=== PATIENT | male | born 1950 | race Caucasian/White ===

== ENCOUNTER 2020-12-27 17:42 | Outpatient (CLI) | payer MEDICARE, SELFPAY | END 2020-12-27 17:43 | disposition home or self-care (01) | LOC: ANHCOVIDVC 17:42 | PROVIDERS: PCP Family Medicine; Visit Provider Family Medicine | DX: Z23 Encounter for immunization (principal) | CPT/HCPCS: 0001A; 91300 ==

== ENCOUNTER 2021-01-17 16:35 | Outpatient (CLI) | payer MEDICARE, SELFPAY | END 2021-01-17 16:36 | disposition home or self-care (01) | LOC: ANHCOVIDVC 16:35 | PROVIDERS: PCP Family Medicine | DX: Z23 Encounter for immunization (principal) | CPT/HCPCS: 0002A; 91300 ==

== ENCOUNTER 2022-06-12 01:49 | Day surgery (SDC) | payer MEDICARE, SELFPAY ==
[2022-05-30 12:23] VITALS: BMI 25.7
[2022-06-12 10:22] VITALS: BP 141/100; PULSE 91; TEMP 36.4; O2SAT 99
[2022-06-12] MEDS: LACTATED RINGERS 1,000 ML 150 ML IV CONT (10:23)
--- NOTE | 2022-06-12 10:30 | PM.IMHP ---
H&P: HPI History of Present Illness Date/Time: 06/12/22 10:30 Chief Complaint: Neoplasia screening. Narrative: This is a 71-year-old white male patient presents for screening colonoscopy. Patient reports his current weight appetite and bowel movements are normal. He denies abdominal pain. He has had no bleeding. Family history is significant both his mother and maternal aunt have had colon cancer. Patient presents today for screening colonoscopy. Last exam 2014 was unremarkable. Review of Systems Review of Systems: Review of systems noncontributory. FORMERLY [facility] Family History Family History (Updated 12/31/17 @ 12:14 by DOCTOR UNKNOWN) Father Family history of cardiovascular disease Sibling Diabetes mellitus Mother Carcinoma of colon Social History Social History Smoking status: Light tobacco smoker Alcohol intake: current Substance use type: does not use Living arrangements: with family Spiritual care concerns: No Meds Home Medications and Allergies Home Medications Medication Instructions Recorded Confirmed Type No Home Medications 06/12/22 06/12/22 History Allergies Allergy/AdvReac Type Severity Reaction Status Date / Time PCN Allergy Unknown Unknown Uncoded 06/12/22 10:21 Vital Signs Vital Signs - 24 hr 06/12/22 10:22 Temperature 97.6 F Pulse Rate 91 Blood Pressure 141/100 H Pulse Oximetry 99 Oxygen Delivery Room Air Exam Narrative: Physical exam reveals patient to be alert. Vital signs stable. HEENT exam is unremarkable. Patient is anicteric. Lungs are clear to auscultation and percussion. Heart is without murmur or extra sounds. Abdominal exam bowel sounds are present soft nontender with no organomegaly. Digital external rectal exam is normal. Assessment and Plan Assessment and plan (1) Encounter for screening colonoscopy: Code(s): Z12.11 - Encounter for screening for malignant neoplasm of colon Status: Acute Assessment and Plan: Patient presents for screening colonoscopy. Family history of colon cancer suggesting may have a higher risk of colon polyps. Follow-up colonoscopy at 5 year intervals advised.
--- NOTE | 2022-06-12 10:40 | P.PNAN_ITS ---
Anes - Initial Pre Proc Eval Procedure: Operation Date: 06/12/22 11:30 Proposed Procedures p Screening Colonoscopy - Dimas Bennett MD Date/Time: 06/12/22 10:40 Surgeon: Dimas Bennett MD Pre Op Diagnosis: family hx of colon ca Patient Data Age: 71 Gender: M Height: 1.83 m Weight: 89.2 kg Last Vital Signs Temp 97.6 F 06/12/22 10:22 Pulse 91 06/12/22 10:22 BP 141/100 H 06/12/22 10:22 Pulse Ox 99 06/12/22 10:22 O2 Del Method Room Air 06/12/22 10:22 Allergies Allergy/AdvReac Type Severity Reaction Status Date / Time PCN Allergy Unknown Unknown Uncoded 06/12/22 10:21 Home Medications Medication Instructions Recorded Confirmed Type No Home Medications 06/12/22 06/12/22 History Patient hx anesthesia problems: none Family hx anesthesia problems: none Results Review: All pre-operative results and documents have been reviewed as part of the pre- operative evaluation. [facility] Family History Family History (Updated 12/31/17 @ 12:14 by DOCTOR UNKNOWN) Father Family history of cardiovascular disease Sibling Diabetes mellitus Mother Carcinoma of colon Social History Social History Smoking status: Light tobacco smoker Alcohol intake: current Substance use type: does not use Living arrangements: with family Spiritual care concerns: No Anes - Eval Final PreProcedure Day of Procedure 06/12/22 10:40 Patient weight: normal Heart: regular rate and rhythm Lungs: clear to auscultation Airway: Mallampati scale class II Neurological: alert and oriented Last oral intake: >/= 8 hours ASA classification: II Emergent: no Anesthetic plan: proceed Anesthesia type and monitoring: general GIVS and standard monitoring Results Review: All pre-operative results and documents have been reviewed as part of the pre- operative evaluation. Informed Consent: The patient's anesthetic plan and its attendant risks and benefits were discussed with the patient/family/POA. Questions were solicited and answers provided to the satisfaction of the patient/family/POA.
[2022-06-12 10:54] VITALS: BP 100/72; PULSE 80; RESP 14; O2SAT 99
[2022-06-12 11:04] VITALS: BP 112/75; PULSE 74; RESP 16; O2SAT 95
[2022-06-12 11:14] VITALS: BP 111/74; PULSE 68; RESP 15; O2SAT 96
[2022-06-12 11:24] VITALS: BP 109/90; PULSE 73; RESP 15; O2SAT 97
== END 2022-06-12 11:33 | disposition home or self-care (01) ==
PROVIDERS: PCP Family Medicine; Visit Provider Internal Medicine Gastroenterology
PROC: 0DJD8ZZ Inspection of Lower Intestinal Tract, Via Natural or Artificial Opening Endoscopic (ICD-10-PCS; CPT 45378; principal; 2022-06-12 11:30)
DX: Z12.11 Encounter for screening for malignant neoplasm of colon (principal); Z80.0 Family history of malignant neoplasm of digestive organs
CPT/HCPCS: G0105; J2704; J7120

== ENCOUNTER 2022-09-14 07:38 | Outpatient (CLI) | payer MEDICARE, SELFPAY ==
--- NOTE | ~2022-09-14 | NM_ITS ---
EXAMINATION: NM bone scan whole body DATE: 09/14/2022 12:26 INDICATION: Prostate cancer. TECHNIQUE: 26.4 mCi Tc-99m HDP was administered intravenously. Delayed whole-body scintigrams were o btained. COMPARISON: CT abdomen and pelvis 09/14/2022 FINDINGS: There is joint-centered increased activity in the spine, sternoclavicular joints, acromiocl avicular joints, right glenohumeral joint, hands, and wrists, likely osteoarthritis. IMPRESSION: 1. No specific evidence of metastatic disease. Reviewed, dictated and finalized at location A. LER DRAGLINE OPERATOR
--- NOTE | ~2022-09-14 | CT_ITS ---
EXAMINATION: CT abdomen pelvis w con INDICATION: Low back pain, history of prostate cancer TECHNIQUE: Computed tomographic images of the abdomen and pelvis were obtained after the administrati on of 100 cc of Omnipaque 350 intravenous contrast. The dose-length product (DLP) was 658.32 mGy-cm. Automated exposure control and iterative reconstruction technique were employed. COMPARISON: None available FINDINGS: Minimal dependent atelectasis is present in the lung bases. The heart size is normal. The l iver, spleen, pancreas, gallbladder, and adrenal glands are normal. The right kidney is unremarkable. There is a 1.4 cm soft tissue attenuation lesion projecting from the posterior aspect of the left ki dney. No pathologically enlarged abdominal or pelvic lymph nodes are identified. There is no free int raperitoneal gas or evidence of bowel obstruction. There is mild circumferential wall thickening of t he urinary bladder. There is severe lower lumbar spondylosis. IMPRESSION: 1. No evidence of metastatic disease. 2. Indeterminate lesion of the left kidney. Follow-up by CT or MRI without and with contrast is recom mended. 3. Severe lower lumbar spondylosis. 4. Circumferential wall thickening of the urinary bladder which could reflect cystitis or chronic out let obstruction. Reviewed, dictated and finalized at location F. RAL HOME ATTENDANT IMPRESSION: 1. No evidence of metastatic disease. 2. Indeterminate lesion of the left kidney. Follow-up by CT or MRI without and with contrast is recommended. 3. Severe lower lumbar spondylosis. 4. Circumferential wall thickening of the urinary bladder which could reflect c ystitis or chronic outlet obstruction.
[2022-09-14 08:17] LABS: Estimated Glomerular Filt Rate > 60
== END 2022-09-14 07:39 | disposition home or self-care (01) ==
PROVIDERS: PCP Family Medicine; Visit Provider Urology
DX: C61 Malignant neoplasm of prostate (principal); M47.896 Other spondylosis, lumbar region
CPT/HCPCS: 74177; 78306; A9561; Q9967

== ENCOUNTER 2022-10-15 06:34 | Outpatient (CLI) | payer MEDICARE, SELFPAY ==
--- NOTE | ~2022-10-15 | MR_ITS ---
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 Sequences included coronal T2-weighted SS-FSE, coronal and axial FS 2D-F IESTA, axial STIR FSE, axial T2-weighted SS-FSE, axial T2-weighted FS SS-FSE, axial diffusion-weighte d SE, axial dual-echo T1-weighted FSPGR, and axial and coronal T1-weighted LAVA. Postcontrast axial T 1-weighted LAVA images were obtained in a time course. Postcontrast coronal T1-weighted LAVA images w ere obtained. COMPARISON: CT dated 09/14/2022 FINDINGS: Heart size is normal. No pericardial effusion. Trace right pleural effusion. Mild diffuse hepatic leigh ann atosis. Gallbladder, pancreas, spleen right kidney and bilateral adrenal glands are normal. Nonenhanc ing 1.5 cm exophytic complex cyst at the lower pole of the left kidney corresponding to the lesion of concern on prior CT. This demonstrates high T2 signal with small amount of dependently layering low T2, high T1 either blood or proteinaceous fluid. Visualized portions of the bowels are unremarkable. Mild bladder wall thickening with trabeculated mucosal surface which could be related to chronic outl et obstruction from the prostate which appeared enlarged on the prior CT . No pathologically enlarged abdominal or pelvic lymphadenopathy. Moderate thoracic and severe lower lumbar spondylosis. IMPRESSION: 1. Left renal lesion of concern corresponds to a 1.5 cm exophytic complex proteinaceous/hemorrhagic c yst at the lower pole of the left kidney. 2. Bladder wall thickening with trabeculation likely related to chronic outlet obstruction related to prostatomegaly. Reviewed, dictated and finalized at location B. CHMENT ASSISTANT IMPRESSION: 1. Left renal lesion of concern corresponds to a 1.5 cm exophytic complex prote inaceous/hemorrhagic cyst at the lower pole of the left kidney. 2. Bladder wall thickening with trabeculation likely related to chronic outlet obstruction related to prostatomegaly.
== END 2022-10-15 06:35 | disposition home or self-care (01) ==
PROVIDERS: PCP Family Medicine; Visit Provider Urology
DX: D41.02 Neoplasm of uncertain behavior of left kidney (principal)
CPT/HCPCS: 74183; A9577

== ENCOUNTER 2023-04-10 15:39 | Outpatient (CLI) | payer MEDICARE, SELFPAY ==
--- NOTE | ~2023-04-10 | PE_ITS ---
EXAMINATION: PET_PETPSMAST_PT DATE: 04/11/2023 08:34 INDICATION: Prostate cancer. TECHNIQUE: 9.186 mCi of piflufolastat F-18 was administered intravenously. Low dose computed tomograp hy (CT) images were acquired from the base of the brain to the proximal thighs for attenuation correc tion and anatomic localization. Automated exposure control was employed. Dose-length product (DLP) wa s 498 mGy-cm. Positron emission tomography (PET) images were acquired in the same distribution. COMPARISON: CT abdomen and pelvis 09/14/2022 FINDINGS: Head/neck: There are no pathologically enlarged lymph nodes. There is mucosal thickening in the paran daya sinuses. Chest: There is no pneumonia or pleural effusion. The heart size is normal. No pericardial effusion. There are no pathologically enlarged lymph nodes. Abdomen/pelvis/proximal thighs: The liver, gallbladder, spleen, pancreas, adrenal glands, and right k idney are normal. There is a 16 mm cyst in left kidney. The prostate is mildly enlarged with maximum SUV of 16.9, worse on the left. There is chronic diffuse bladder wall thickening, likely secondary to chronic outlet obstruction. There are no dilated loops of bowel. The appendix is normal. There are n o pathologically enlarged lymph nodes. There is increased activity in normal-sized perirectal and nemo ateral internal iliac nodes with maximum SUV measuring up to 17.4 in a left internal iliac node. Ther e is no free intraperitoneal fluid. There is no osseous malignancy. IMPRESSION: 1. Mildly enlarged prostate with increased activity, consistent with primary malignancy. 2. Normal sized perirectal and bilateral internal iliac nodes with increased activity, consistent met astatic disease. Reviewed, dictated and finalized at location A. IMPRESSION: 1. Mildly enlarged prostate with increased activity, consistent with primary ma lignancy. 2. Normal sized perirectal and bilateral internal iliac nodes with increased ac tivity, consistent metastatic disease.
== END 2023-04-10 15:40 | disposition home or self-care (01) ==
LOC: ANHIMG 15:40
PROVIDERS: PCP Family Medicine; Visit Provider Urology
DX: C61 Malignant neoplasm of prostate (principal)
CPT/HCPCS: 78815; A9595

== ENCOUNTER 2023-08-06 09:33 | Outpatient (CLI) | payer MEDICARE, SELFPAY ==
--- NOTE | 2023-08-16 19:26 | WPDSLEEPSTUD ---
Sleep Study Date of Study: 08/06/23 Ordering Provider: Jorge Deutsch DO Interpreting Physician: Keri López DO Sleep Study Type: Split Polysomnogram Height: 1.83 m Weight: 84.822 kg Body Mass Index: 25.3 Neck Circumference (inches): 18 [place]: 3 Reason for Sleep Study Snoring, witnessed apneas, atrial flutter Sleep History The patient is a 73-year-old male that had a sleep study ordered by his boat canvas maker installer for evaluation of sleep apnea. The patient denies awakening from sleep short of breath. He denies awakening at night with heartburn, belching or cough. He occasionally snores and is occasionally loud enough that others complain. He denies having trouble sleeping when he has a cold. He denies waking up gasping for air throughout the night. He rarely has breathing problems at night observed by himself or others. He rarely sweats excessively night. He denies having heart palpitations or irregular heartbeats during the night. He occasionally falls asleep during the day but never while driving. He denies sleep paralysis and cataplexy. He denies having trouble at school or work due to sleepiness. He denies feeling afraid of going to sleep. He occasionally remembers his dreams. He occasionally has thoughts racing through his mind. He rarely has muscular tension. He rarely notices parts of his body jerk. He denies kicking during the night. He denies having crawling and aching feelings in his legs but rarely has leg pain during the night. He occasionally grinds his teeth during sleep but never awakens with morning jaw pain. He denies being bothered by pain during the day and denies being awakened by pain during the night. He rarely wakes up feeling stiff morning. He denies waking up with sore or achy muscles. He denies waking up with pain in the neck, spine or other joints. He goes to bed between 9-10 p.m. on weekdays and between 9-11 p.m. on the weekends. It takes him about 30 minutes to fall asleep. He wakes up throughout the night for unknown reasons and it can take over an hour for him to fall back asleep. He wakes up between 6-8 a.m. on both weekdays and weekends. He typically gets 6-7 hours of sleep per night. He does not stay in bed after waking up in the morning. He currently lives with his and adult child. He denies consuming any caffeinated beverages within 2 hours of bedtime. He denies engaging in physical exercise before bedtime. He will read before falling asleep. He denies watching television. He will take occasional naps in the afternoon and they are refreshing. He consumes 1/3 of a cup of caffeinated beverage per day. He denies tobacco, alcohol and recreational drug use. [facility]LY [facility], [facility] Family History Family History Father Family history of cardiovascular disease Sibling Diabetes mellitus Heart disease Mother Carcinoma of colon Grandparent Alcohol abuse Social History Social History Smoking status: Former smoker Tobacco type: cigars Alcohol intake: current Drinks per week: 3 Substance use: never Substance use type: does not use Lack of Transportation: No Lack of Food: Never True Current Housing: I Have Housing Concerned About Future Housing: No Difficulty Paying Gas/Electric Bills: No Difficulty Paying for Meds: No Currently Unemployed: No Education: Bachelor's Degree Difficulty w/ Childcare or Family Care: No Living arrangements: with family Spiritual care concerns: No Medications Home Medications Medication Instructions Recorded Confirmed Type abiraterone 250 mg tablet 1,000 mg PO DAILY 07/16/23 07/22/23 History prednisone 5 mg tablet 5 mg PO DAILY 07/16/23 07/22/23 History relugolix 120 mg tablet (Orgovyx) 120 mg PO DAILY 07/16/23 07/22/23 History aspirin 325 mg tablet 325 mg PO DAILY 07/22/23 07/22/23 History metoprolol kahn
[2023-08-16 19:44] VITALS: BMI 25.3
== END 2023-08-07 07:49 | disposition home or self-care (01) ==
LOC: ANHCSM 09:34
PROVIDERS: PCP Family Medicine; Visit Provider Internal Medicine Cardiovascular Disease
DX: G47.10 Hypersomnia, unspecified (principal); G47.33 Obstructive sleep apnea (adult) (pediatric)
CPT/HCPCS: 95811

== ENCOUNTER 2023-08-27 12:23 | Outpatient (CLI) | payer MEDICARE, SELFPAY ==
--- NOTE | 2023-08-27 12:27 | ECHO_ITS ---
Patient Info Name: Darvin Lopez Age: 73 years : 1950 Gender: Male Ht: 71 in Wt: 185 lbs BSA: 2.06 m2 HR: 55 bpm BP: 147 / 102 mmHg Heart Rhythm: Atrial Flutter Technical Quality: Fair Exam Date: 08/27/2023 12:38 PM Exam Location: Echo Lab Patient Status: Outpatient Admit Date: 08/27/2023 Staff Ordering Physician: Jorge Deutsch DO Block Inspector: Mila Parker RDCS Attending Provider: Jorge Deutsch DO Referring Physician: Get DREW; Exam Type: CA echo doppler color flow Study Info Indications - Unspecified atrial flutter Complete two-dimensional, color flow and Doppler transthoracic echocardiogram is performed with contrast to opacify the left ventricle and to improve the deliniation of the left ventricle endocardial borders. Summary 1. Left ventricular chamber dimension is normal. 2. Left ventricular systolic function is normal, estimated at 55-60%. 3. The left ventricular diastolic function is abnormal. 4. E/e' 13 is mildly elevated. 5. Left atrial chamber dimension is moderately enlarged. 6. There is mild aortic valve sclerosis. 7. There is mild aortic valve regurgitation. 8. There is mild mitral valve regurgitation. 9. There is mild tricuspid valve regurgitation. 10. No pulmonary hypertension, estimated pulmonary arterial systolic pressure is 31 mmHg. Left Ventricle E/e' 13 is mildly elevated. Left ventricular chamber dimension is normal. Left ventricular systolic function is normal, estimated at 55-60%. The left ventricular diastolic function is abnormal. Right Ventricle Right ventricular chamber dimension is normal. Right ventricular systolic function is normal. Left Atria Left atrial chamber dimension is moderately enlarged. Right Atria Right atrial chamber dimension is normal. Aortic Valve The aortic valve is trileaflet. There is mild aortic valve sclerosis. There is no aortic valve stenosis. There is mild aortic valve regurgitation. Pulmonic Valve There is no pulmonic regurgitation. Mitral Valve There is no mitral valve stenosis. There is mild mitral valve regurgitation. Tricuspid Valve There is mild tricuspid valve regurgitation. No pulmonary hypertension, estimated pulmonary arterial systolic pressure is 31 mmHg. Pericardium/Pleural There is no pericardial effusion. Inferior Vena Cava Normal inferior vena cava with >50% collapse upon inspiration consistent with normal right atrial pressure, 5 mmHg. Aorta The aortic root size at the sinus of Valsalva is normal. Left Ventricular Outflow Tract Name Value Normal LVOT 2D LVOT Diameter 2.0 cm LVOT Doppler LVOT Peak Gradient 3 mmHg LVOT Mean Gradient 1 mmHg LVOT VTI 19 cm LVOT VTI/AV VTI Ratio 0.9 LVOT Stroke Volume 58 ml LVOT CO 3.2 l/min LVOT CI 1.5 l/min/m2 Pulmonic Valve Name Value Normal RVOT
== END 2023-08-27 12:24 | disposition home or self-care (01) ==
LOC: ANHCARD 12:24
PROVIDERS: PCP Family Medicine; Visit Provider Internal Medicine Cardiovascular Disease
DX: I48.92 Unspecified atrial flutter (principal); I34.0 Nonrheumatic mitral (valve) insufficiency; I35.1 Nonrheumatic aortic (valve) insufficiency; I36.1 Nonrheumatic tricuspid (valve) insufficiency
CPT/HCPCS: 93306

== ENCOUNTER 2023-11-13 02:14 | Inpatient (IN) | payer MEDICARE, SELFPAY ==
[2023-11-13] VITALS (28 sets, daily range): BP systolic 111–176; BP diastolic 64–134; PULSE 65–133; RESP 12–23; TEMP 35.6–36.9; O2SAT 94–99; BMI 28.8
--- NOTE | ~2023-11-13 | XR_ITS ---
Portable chest x-ray Comparison: None Clinical History: Nausea and vomiting Findings: Lungs are clear, without focal consolidation or pleural effusion. Cardiomediastinal silho uette is unremarkable.. Possible enchondroma at the proximal right humerus. Impression: Clear lungs. Reviewed, dictated and finalized at location . [employer] TRADE Impression: Clear lungs.
--- NOTE | ~2023-11-13 | US_ITS ---
EXAMINATION: US carotid duplex BI DATE: 11/15/2023 09:42 INDICATION: Syncope. TECHNIQUE: Grayscale, color Doppler, and pulsed Doppler images of the cervical carotid arteries were obtained. The degree of vessel stenosis is placed in one of the following categories: normal, <50%, 5 0-69%, >=70% but less than near-occlusion, near-occlusion, or total occlusion. Note that percent sten osis relative to normal distal artery lumen diameter is indirectly measured from velocity measurement s as described by Israel, et al. Radiology 2003; 229:340-346. COMPARISON: None. FINDINGS: RIGHT: The right common carotid artery (CCA) peak systolic velocity (PSV) is 85 cm/s. The right internal car otid artery (ICA) PSV is 53 cm/s. The right ICA end-diastolic velocity (EDV) is 19 cm/s. The right IC A/CCA PSV ratio is 0.6. Grayscale and color Doppler images yield an estimate of <50% diameter reducti on from plaque in the ICA. There is antegrade flow in the right vertebral artery. LEFT: The left CCA PSV is 78 cm/s. The left ICA PSV is 55 cm/s. The left ICA EDV is 20 cm/s. The left ICA/C CA PSV ratio is 0.7. Grayscale and color Doppler images yield an estimate of <50% diameter reduction from plaque in the ICA. There is antegrade flow in the left vertebral artery. IMPRESSION: 1. <50% stenosis in the right internal carotid artery. 2. <50% stenosis in the left internal carotid artery. Reviewed, dictated and finalized at location E. TITATIVE CONSULTANT
--- NOTE | ~2023-11-13 | CT_ITS ---
EXAMINATION: CT brain wo con DATE: 11/13/2023 19:32 INDICATION: Syncope. TECHNIQUE: Computed tomography (CT) of the head was performed without intravenous contrast. The mA wa s adjusted according to patient size. Iterative reconstruction technique was employed. The dose-lengt h product was 681.00 mGy-cm. COMPARISON: None FINDINGS: There is no intracranial hemorrhage, acute infarction, or abnormal intracranial mass lesion . The ventricles are normal in size. The orbits are normal. There is mild mucosal thickening in the p aranasal sinuses. The mastoid air cells are normal. IMPRESSION: 1. Normal brain. Reviewed, dictated and finalized at location E. TRICAL ENGINEERING DRAFTING OFFICER IMPRESSION: 1. Normal brain.
--- NOTE | 2023-11-13 02:16 | ECG_ITS ---
Measurements Intervals [place] Rate: 120 P: [place]: 0 QRS: 47 QRSD: 82 T: 48 QT: 337 QTc: 478 Interpretive Statements ATRIAL FLUTTER WITH RAPID VENTRICULAR RESPONSE BASELINE ARTIFACT- V3-V5 ABNORMAL ECG NO PREVIOUS ECG AVAILABLE FOR COMPARISON Electronically Signed On 11-13-2023 6:40:41 INSTRUCTIONAL WRITER by Jorge Deutsch D.O.
[2023-11-13 02:33] LABS: Basophils Percent Auto 0.2 % (0.2-1.2); Eosinophils Absolute Auto 0.1 K/mm3 (0-0.3); Eosinophils Percent Auto 2.4 % (0-4.4); Hematocrit 42.2 % (42.0-52.0); Hemoglobin 14.8 g/dL (14.0-18.0); Immature Granulocyte Absolute 0.01 K/mm3 (0.00-0.031); Immature Granulocyte Percent A 0.2 % (0-0.5); Lymphocytes Absolute Auto 1.27 K/mm3 (0.9-3.2); Mean Corpuscular HGB Conc 35.1 g/dl (32-36); Mean Corpuscular Hemoglobin 33.5 pg (26-34); Mean Corpuscular Volume 95.5 fl (80-100); Mean Platelet Volume 9.5 fl (7.4-10.4); Monocytes Absolute Auto 0.5 K/mm3 (0.1-0.6); Monocytes Percent Auto 12.7 % (2.6-8.5); Neutrophils Absolute Auto 2.2 K/mm3 (1.3-6.7); Neutrophils Percent Auto 53.5 % (45.5-73.1); Platelet Count Result 164 k/mm3 (150-375); Red Blood Count 4.42 M/mm3 (4.6-6.20); Red Cell Distribution Width 11.5 % (11.5-14.5); White Blood Count 4.1 K/mm3 (4.5-10.0)
--- NOTE | 2023-11-13 02:35 | ED.SYNCOPE ---
HPI - Syncope General Chief Complaint: Dizziness Stated Complaint: dizzy, a flutter Time Seen by Provider: 11/13/23 02:16 Source: patient and family Limitations: no limitations History of Present Illness HPI narrative: Patient is a 73-year-old male presents to the emergency department complaining of lightheadedness. Patient states for the past approximately 1 hour he has been feeling lightheaded and faint. Patient states he went to the go to the bathroom and progressively became more lightheaded and denies fully passing out or having any injuries. Patient admits to consuming alcohol tonight of multiple beers and a shot and some states that he will likely have more than this. Patient denies being a daily drinker having any history of alcohol withdrawal. Patient denies any illicit drug use. Patient denies chest pain, difficulty breathing, diarrhea, recent illness, fever, sore throat nasal congestion, abdominal pain. Patient admits to nausea vomiting that started over the past 1 hour with the vomiting. Nonbloody nonbilious. Patient does not have any sick contacts. Patient admits to taking was medications as prescribed without any recent changes. Patient admits to history of atrial flutter with RVR and is on metoprolol with his dose changed approximate 1.5 months ago from 50 mg once daily 200 mg once daily. Related Data Home Medications Medication Instructions Recorded Confirmed abiraterone 250 mg tablet 1,000 mg PO DAILY 07/16/23 11/12/23 relugolix 120 mg tablet (Orgovyx) 120 mg PO DAILY 07/16/23 11/12/23 aspirin 325 mg tablet 325 mg PO DAILY 07/22/23 11/12/23 prednisone 10 mg tablet 10 mg PO DIRECTED 11/12/23 11/12/23 Allergies Allergy/AdvReac Type Severity Reaction Status Date / Time PCN Allergy Unknown Unknown Uncoded 11/13/23 02:21 Review of Systems Review of Systems: A 10 system review of systems was completed on the patient and is negative except for what is stated in the HPI. Nursing and ancillary documentation was reviewed. FOR[facility]LY [facility], [facility] Family History Family History Father Family history of cardiovascular disease Sibling Diabetes mellitus Heart disease Mother Carcinoma of colon Grandparent Alcohol abuse Social History Social History Smoking status: Former smoker Tobacco type: cigars Alcohol intake: current Drinks per week: 3 Substance use: never Substance use type: does not use Lack of Transportation: No Lack of Food: Never True Current Housing: I Have Housing Concerned About Future Housing: No Difficulty Paying Gas/Electric Bills: No Difficulty Paying for Meds: No Currently Unemployed: No Education: Bachelor's Degree Difficulty w/ Childcare or Family Care: No Living arrangements: with family Spiritual care concerns: No Comments At time of signature, I have reviewed and agree with nursing past medical, surgical, social and family history unless otherwise noted. Please see the nursing chart for further information. There is no relevant family history pertinent to the presenting complaint. Exam Narrative: CONST: Well nourished. Actively vomiting the room with nonbloody and nonbilious appearing emesis. HENMT: Head is normocephalic and atraumatic. Tacky mucous membranes. No posterior oropharynx erythema. EYES: No conjunctival icterus, injection, or pallor. PERRL. NECK: No meningeal signs. No palpable thyromegaly or thyroid tenderness to palpation. RESP: Able to speak in full sentences. Normal respiratory effort. CTAB. CARDIO: Tachycardic rate with an irregularly irregular rhythm. 2+ DP and radial pulses bilaterally. GI: Nondistended. No tenderness to palpation. Soft. : No CVA tenderness to palpation. SKIN: No rashes or lesions noted on exposed skin. NEURO: Oriented x3. Moves all extremities. No focal neurological deficits. EXTREM/MSK/BACK: No pedal
[2023-11-13 02:53] LABS: Alanine Aminotransferase 18 U/L (6-50); Albumin Level 4.5 g/dL (3.5-5.1); Alkaline Phosphatase 69 U/L (38-126); Anion Gap 11 mmol/L (8-16); Aspartate Amino Transferase 36 U/L (17-59); Bilirubin,Total 1.2 mg/dL (0.2-1.3); Blood Urea Nitrogen 11 mg/dL (9-20); Carbon Dioxide 19 mmol/L (22-30); Chloride 108 mmol/L (98-107); Estimated CRCL calculation 88 ml/min; Estimated Glomerular Filt Rate > 60; Glucose 150 mg/dL (65-110); Potassium 4.4 mmol/L (3.4-5.0); Sodium 138 mmol/L (137-145)
[2023-11-13] MEDS: FAMOTIDINE 20 MG/2 ML VIAL IV PUSH (03:05)
[2023-11-13 03:06] LABS: Lipase 108 U/L (23-300); Magnesium 2.3 mg/dL (1.6-2.3)
[2023-11-13] MEDS: ONDANSETRON INJ 4 MG/2 ML VIAL IV PUSH ×2 (03:06→04:08)
[2023-11-13] MEDS: MAGNESIUM SULF 2 GM/WATER 50ML 2 GM/50 ML BAG IVPB (03:08)
[2023-11-13] MEDS: SODIUM CHLORIDE 0.9% IV 1,000 ML 999 ML IV CONT ×2 (03:08→04:08)
[2023-11-13 03:17] LABS: Troponin I 0.022 ng/mL (0.000-0.034)
[2023-11-13 03:22] LABS: Ethanol 11 mg/dL (<10)
--- NOTE | 2023-11-13 03:34 | PC.NURSE ---
EDP Dr. Meza made aware of pt BP readings. No additional orders at this time.
[2023-11-13 03:35] LABS: Lactic Acid Reflex 4.5 mmol/L (0.7-2.0)
[2023-11-13 03:49] LABS: Prothrombin Time 13.2 Seconds (11.1-14.7)
[2023-11-13 03:50] LABS: Partial Thromboplastin Time 35.2 SECONDS (22.3-36.8)
[2023-11-13 03:54] LABS: Influenza A QL RT-PCR Negative (Negative); Influenza B QL RT-PCR Negative (Negative); RSV RNA, RT-PCR Negative (Negative); SARS-CoV-2 RNA PCR Negative (Negative)
[2023-11-13 04:15] LABS: D Dimer 0.39 ug/mL (<0.48)
[2023-11-13] MEDS: dilTIAZem HCl INJ 25 MG/5 ML VIAL 10 MG IV PUSH (04:34)
[2023-11-13] MEDS: dilTIAZem 100 MG/100 ML 100 MG/100 ML BAG IV CONT (05:24)
--- NOTE | 2023-11-13 05:25 | ECG_ITS ---
Measurements Intervals [place] Rate: 94 P: [place]: 0 QRS: 49 QRSD: 82 T: 15 QT: 417 QTc: 522 Interpretive Statements ATRIAL FLUTTER VENTRICULAR PREMATURE COMPLEXES NONSPECIFIC ST & T-WAVE ABNORMALITY- ANTEROLAT/HIGH LAT LEADS BASELINE ARTIFACT- I, II, III, AVR, AVL, AVF, V1-V6 ABNORMAL ECG COMPARED TO ECG 11/13/2023 02:21:37 ST-T WAVE ABNORMALITY NOW PRESENT Electronically Signed On 11-13-2023 9:35:19 BILINGUAL PATIENT SUPPORT CASEWORKER by Jorge Deutsch D.O.
[2023-11-13 05:47] LABS: Appearance Urine Clear (Clear); Bilirubin Urine Negative (Negative); Blood Urine Negative (Negative); Color Urine Yellow (Yellow); Glucose Urine UA Negative (Negative); Ketones Urine Negative (Negative); Leukocyte Esterase Ur Negative LEU/UL (Negative); Nitrate Urine Negative (Negative); Protein Urine Negative (Negative); Specific Grav Ur 1.008 (1.001-1.035); Urobilinogen Urine 0.2 mg/dL (<2.0); pH Urine 6.5 (5.0-9.0)
[2023-11-13 06:02] LABS: Amphetamine Screen Urine Negative (Negative); Barbiturate Screen Urine Negative (Negative); Benzodiazepines Screen Urine Negative (Negative); Cannabinoid Screen Urine Negative (Negative); Cocaine Screen Urine Negative (Negative); Methadone Screen Urine Negative (Negative); Opiate Screen Urine Negative (Negative); Phencyclidine Screen Urine Negative (Negative)
[2023-11-13 06:06] LABS: Troponin I < 0.012 ng/mL (0.000-0.034)
--- NOTE | 2023-11-13 06:10 | ADMGEN ---
This patient, Darvin Lopez, was admitted to IMU Room 232-01. Patient/family oriented to hospital policies and general routines including ID bracelet, bed and alarms, visiting hours, pain management, procedures, bathroom and other care routines, personal items, smoking policy, room service/diet, and visiting hours. Information on how to activate the Rapid Response Team has been discussed. Patient/Family are encouraged to report perceived risks to care and to ask questions if they do not understand what they are told or what they should do.
[2023-11-13 06:16] LABS: Reflex Lactic Acid Yes or No Add Lactic
[2023-11-13] MEDS: PROMETHAZINE HCL 25 MG/ML AMPUL IM (06:20)
[2023-11-13] MEDS: SODIUM CHLORIDE 0.9% IV 1,000 ML 125 ML IV CONT ×2 (06:21→14:23)
[2023-11-13 06:24] LABS: Add Urine Microscopic? NO
--- NOTE | 2023-11-13 09:03 | PM.CNCAR ---
Assessment and Plan Assessment and plan (1) Atrial flutter with rapid ventricular response: Code(s): I48.92 - Unspecified atrial flutter Status: Acute Assessment and Plan: Rapid HR, but could be due to volume depletion with it. [id number] 2. Due to prostate cancer and risk of bleeding will stay with aspirin. On Metoprolol Succinate 100 mg daily for rate control. Stop Diltiazem drip. Give IVF which he is receiving now. Start Metoprolol Tartate 25 mg PO q6 hr with parameters. (2) Near syncope: Code(s): R55 - Syncope and collapse Status: Acute Assessment and Plan: Due to volume depletion likely. (3) Hypertension: Code(s): I10 - Essential (primary) hypertension Status: Acute Assessment and Plan: Stable. History of Present Illness History of Present Illness Consult date/time: 11/13/23 09:03 Reason For Visit: Atrial Flutter with RVR Narrative: 73 yr old man who is my regular cardiology patient and a patient of Dr. Joy presents to [facility]. He has a history of atrial flutter, hypertension, prostate cancer, GAEL on CPAP (Sees Elaine Cardoza). Reports he saw his PCP yesterday morning for routine check up and everything was fine. He ordered take out at restaurant and while waiting had a bourbon with diet coke, went home had 2 beers with his meal. He went to bed, and got up to use restroom at 2:30 am and felt extremely dizzy almost passing out that he had to crawl back to bed. He told his who called ambulance. He still has some nausea and dizziness while in bed now. Normally he is able to walk a mile without any problems. Admits to snoring, stops breathing and daytime sleepiness. Denies orthopnea, PND, edema, palpitations. Cardiovascular Procedures Echo/MUGA:: 08/27/23 Echo: EF 55-60%, diastolic dysfunction (E/e' 13), mod LAE, mild AI/MR/TR. Electrophysiology:: 07/16/23 EKG: Atrial flutter at 115 bpm. Stress Tests:: 08/06/23 Sleep study: Mild GAEL with desat 90%. Review of Systems Review of Systems: All systems reviewed & are unremarkable except as noted in HPI and below Constitutional: Constitutional: Reports as per HPI, Denies chills and Denies fever(s) Cardiovascular: Cardiovascular: Reports as per HPI and Denies chest pain Respiratory: Respiratory: Reports as per HPI and Denies dyspnea Gastrointestinal: Gastrointestinal: Reports as per HPI, Denies abdominal pain and Reports nausea Genitourinary: Genitourinary: Reports as per HPI and Denies dysuria Musculoskeletal: Musculoskeletal: Reports as per HPI Neurologic: Reports as per HPI, Reports dizziness and Denies syncope [facility] Family History Family History Father Family history of cardiovascular disease Sibling Diabetes mellitus Heart disease Mother Carcinoma of colon Grandparent Alcohol abuse Social History Social History Smoking status: Never smoker Tobacco type: cigars Alcohol intake: current Drinks per week: 3 Substance use: never Substance use type: does not use Do You Feel Safe in your Home?: Yes Lack of Transportation: No Lack of Food: Never True Current Housing: I Have Housing Concerned About Future Housing: No Difficulty Paying Gas/Electric Bills: No Difficulty Paying for Meds: No Currently Unemployed: No Education: Bachelor's Degree Difficulty w/ Childcare or Family Care: No Living arrangements: with family Spiritual care concerns: No Meds Home Medications and Allergies Home Medications Medication Instructions Recorded Confirmed Type abiraterone 250 mg tablet 1,000 mg PO DAILY 07/16/23 11/13/23 History relugolix 120 mg tablet (Orgovyx) 120 mg PO DAILY 07/16/23 11/13/23 History aspirin 325 mg tablet 325 mg PO DAILY 07/22/23 11/13/23 History metoprolol succinate 50 mg 50 mg PO DAILY 11/13/23 11/13/23 History tablet,e
[2023-11-13 09:07] LABS: Troponin I < 0.012 ng/mL (0.000-0.034)
[2023-11-13] MEDS: ASPIRIN 325 MG ENTERIC TABLET PO (10:14)
--- NOTE | 2023-11-13 10:29 | PM.IMHP ---
H&P: HPI History of Present Illness Date/Time: 11/13/23 10:29 Chief Complaint: Patient is a 73-year-old male presents to the emergency department complaining of lightheadedness.? Patient states for the past approximately 1 hour he has been feeling lightheaded and faint Narrative: ?Patient states he went to the go to the bathroom and progressively became more lightheaded and denies fully passing out or having any injuries.? Patient admits to consuming alcohol tonight of multiple beers and a shot and some states that he will likely have more than this.? Patient denies being a daily drinker having any history of alcohol withdrawal.? Patient denies any illicit drug use.? Patient denies chest pain, difficulty breathing, diarrhea, recent illness, fever, sore throat nasal congestion, abdominal pain.? Patient admits to nausea vomiting that started over the past 1 hour with the vomiting.? Nonbloody nonbilious.? Patient does not have any sick contacts.? Patient admits to taking was medications as prescribed without any recent changes.? Patient admits to history of atrial flutter with RVR and is on metoprolol with his dose changed approximate 1.5 months ago from 50 mg once daily 200 mg once daily. Review of Systems Review of Systems: All systems reviewed & are unremarkable except as noted in HPI and below PMFSH Family History Family History Father Family history of cardiovascular disease Sibling Diabetes mellitus Heart disease Mother Carcinoma of colon Grandparent Alcohol abuse Social History Social History Smoking status: Never smoker Tobacco type: cigars Alcohol intake: current Drinks per week: 3 Substance use: never Substance use type: does not use Do You Feel Safe in your Home?: Yes Lack of Transportation: No Lack of Food: Never True Current Housing: I Have Housing Concerned About Future Housing: No Difficulty Paying Gas/Electric Bills: No Difficulty Paying for Meds: No Currently Unemployed: No Education: Bachelor's Degree Difficulty w/ Childcare or Family Care: No Living arrangements: with family Spiritual care concerns: No Meds Home Medications and Allergies Home Medications Medication Instructions Recorded Confirmed Type abiraterone 250 mg tablet 1,000 mg PO DAILY 07/16/23 11/13/23 History relugolix 120 mg tablet (Orgovyx) 120 mg PO DAILY 07/16/23 11/13/23 History aspirin 325 mg tablet 325 mg PO DAILY 07/22/23 11/13/23 History metoprolol succinate 50 mg 50 mg PO DAILY 11/13/23 11/13/23 History tablet,extended release 24 hr prednisone 5 mg tablet 5 mg PO DAILY 11/13/23 11/13/23 History Allergies Allergy/AdvReac Type Severity Reaction Status Date / Time PCN Allergy Unknown Unknown Uncoded 11/13/23 02:21 Vital Signs Vital Signs - 24 hr 11/13/23 02:10 11/13/23 02:10 11/13/23 05:24 Temperature 97.4 F L Pulse Rate 118 H 129 H 110 H Respiratory Rate 13 Blood Pressure 162/123 H 142/91 H Pulse Oximetry 99 Oxygen Delivery Room Air 11/13/23 03:33 11/13/23 04:01 11/13/23 04:31 Temperature Pulse Rate 133 H 124 H 121 H Respiratory Rate 12 15 14 Blood Pressure 176/134 H 169/132 H 127/113 H Pulse Oximetry 96 94 98 Oxygen Delivery 11/13/23 05:58 11/13/23 06:01 11/13/23 04:46 Temperature Pulse Rate 106 H 103 H 113 H Respiratory Rate 17 15 Blood Pressure 158/93 H 158/93 H 141/103 H Pulse Oximetry 97 94 Oxygen Delivery 11/13/23 05:02 11/13/23 05:17 11/13/23 05:45 Temperature Pulse Rate 120 H 124 H 105 H Respiratory Rate 23 H 18 16 Blood Pressure 157/111 H 142/91 H 158/93 H Pulse Oximetry 98 96 97 Oxygen Delivery 11/13/23 05:25 11/13/23 06:10 11/13/23 06:10 Temperature 97.0 F L 97.0 F L Pulse Rate 93 105 H 105 H Respiratory Rate 18 18 Blood Pressure 157/100 H 157/100 H Pulse Oximetry 99 99 Oxygen Delivery
[2023-11-13] MEDS: METOPROLOL TARTRATE 25 MG TABLET PO (18:38)
--- NOTE | 2023-11-13 21:25 | PHAR ---
orgovyx 120mg and abiraterone 250mg meds verified and resent to floor entered clarification and called floor to tell them orders needed to be entered for both meds. RN said provider would enter orders after seen this morning
[2023-11-14] VITALS (21 sets, daily range): BP systolic 134–168; BP diastolic 92–107; PULSE 69–125; RESP 20–22; TEMP 36.1–36.9; O2SAT 96–98
[2023-11-14] MEDS: METOPROLOL TARTRATE 25 MG TABLET PO ×2 (00:41→06:25)
--- NOTE | 2023-11-14 07:30 | PM.IMPN ---
Progress Note: A&P Assessment and Plan (1) Atrial flutter with rapid ventricular response: Code(s): I48.92 - Unspecified atrial flutter Status: Acute Assessment and Plan: Rapid HR, suspect volume depletion with it. Echo/MUGA:: 08/27/23 Echo: EF 55-60%, diastolic dysfunction (E/e' 13), mod LAE, mild AI/MR/T [id number] 2. Due to prostate cancer and risk of bleeding will stay with aspirin. -cardiology consulted appreciate recommendation and plan -medication change as per Cardiology, patient understands change as metoprolol succinate 100 mg daily -continue telemetry monitoring until discharge (2) Nausea & vomiting: Qualifiers: Vomiting type: unspecified Qualified Code(s): R11.2 - Nausea with vomiting, unspecified Code(s): R11.2 - Nausea with vomiting, unspecified Status: Resolved (3) Near syncope: Code(s): R55 - Syncope and collapse Status: Acute Assessment and Plan: pt denies any ongoing dizziness, vision changes, or syncope at this time. CT Head, normal (4) GAEL (obstructive sleep apnea): Code(s): G47.33 - Obstructive sleep apnea (adult) (pediatric) Status: Acute Assessment and Plan: - continue home CPAP -f/u out-pt (5) Prostate cancer: Code(s): C61 - Malignant neoplasm of prostate Status: Acute Assessment and Plan: -pending consult with urology, have concerns with medication and side effects -continue outpatient follow-up with urology (6) Anemia: Code(s): D64.9 - Anemia, unspecified Status: Acute (7) Dyslipidemia: Code(s): E78.5 - Hyperlipidemia, unspecified Status: Acute Assessment and Plan: -continue home medication Plan Continue home medications: With the following changes metoprolol tartrate 25 mg p.o. q.6 to metoprolol succinate 100 mg daily. VTE Prophylaxis: ASA DIET: Regular Anticipated hospital stay: > 2 days Code Status: Full Code Subjective Date/time seen: 11/14/23 07:30 Interval history: Patient is a 73-year-old male presents to the emergency department complaining of lightheadedness.? Patient states for the past approximately 1 hour he has been feeling lightheaded and faint Narrative: ?Patient states he went to the go to the bathroom and progressively became more lightheaded and denies fully passing out or having any injuries.? Patient admits to consuming alcohol tonight of multiple beers and a shot and some states that he will likely have more than this.? Patient denies being a daily drinker having any history of alcohol withdrawal.? Patient denies any illicit drug use.? Patient denies chest pain, difficulty breathing, diarrhea, recent illness, fever, sore throat nasal congestion, abdominal pain.? Patient admits to nausea vomiting that started over the past 1 hour with the vomiting.? Nonbloody nonbilious.? Patient does not have any sick contacts.? Patient admits to taking was medications as prescribed without any recent changes.? Patient admits to history of atrial flutter with RVR and is on metoprolol with his dose changed approximate 1.5 months ago from 50 mg once daily 200 mg once daily Interval Hx: 11/14/2023 Pt seen this am, he is up by the bedside, orthostatic vitals are being measured, he denies any dizziness, blurred vision, nausea vomiting, chest pain fever chills. Pt states he had no overnight events. He is requesting discharge to home. Plan to follow up with urologist for medication clarification. continue to monitor until discharge. Review of Systems Review of Systems: All systems reviewed & are unremarkable except as noted in HPI and below Exam Narrative: General: A well-developed, nontoxic-appearing gentleman standing while getting his orthostatic vitals HEENT: PERRL, EOMI. Oral mucosa moist. Neck: Supple. No midline cervical tenderness. Respiratory: Respirations are non- labored and lungs are clear to auscultation bilaterally. [facility]
--- NOTE | 2023-11-14 08:01 | PM.PNCARD ---
Progress Note: A&P Assessment and Plan (1) Atrial flutter with rapid ventricular response: Code(s): I48.92 - Unspecified atrial flutter Status: Acute Assessment and Plan: Rapid HR, but could be due to volume depletion with it. [id number] 2. Due to prostate cancer and risk of bleeding will stay with aspirin. At home was on Metoprolol Succinate 100 mg daily for rate control. Change Metoprolol Tartate 25 mg PO q6 hr with parameters to Metoprolol Succinate 100 mg daily. If HR remains controlled, may d/c home from cardiology standpoint. (2) Near syncope: Code(s): R55 - Syncope and collapse Status: Acute Assessment and Plan: Due to volume depletion likely. (3) Hypertension: Code(s): I10 - Essential (primary) hypertension Status: Acute Assessment and Plan: Stable. Subjective Date/time seen: 11/14/23 08:01 Interval history: No longer having dizziness or nausea. No chest pain or sob. Exam Const: General: cooperative, healthy appearing and comfortable Orientation/consciousness: oriented to person, oriented to place and oriented to time Resp: Auscultation: clear to auscultation bilaterally, no crackles, no rales, no rhonchi and no wheezes Cardio: Rate: regular rate Rhythm: abnormal rhythm Heart sounds: no murmurs Peripheral pulses: dorsalis pedis present Neuro: General: oriented to person, oriented to place and oriented to time Extrem: Right lower extremity: no edema Left lower extremity: no edema Objective Data Vital Signs Vital Signs: Vital Signs - 24 hr 11/13/23 10:00 11/13/23 11:16 11/13/23 12:45 Temperature 96.9 F L Pulse Rate 67 72 69 Respiratory Rate 18 Blood Pressure 125/83 Pulse Oximetry 98 11/13/23 10:00 11/13/23 12:00 11/13/23 14:00 Temperature Pulse Rate 67 65 80 Respiratory Rate Blood Pressure Pulse Oximetry 11/13/23 16:50 11/13/23 18:38 11/13/23 16:00 Temperature 96.8 F L Pulse Rate 74 104 H 69 Respiratory Rate 22 H Blood Pressure 114/64 Pulse Oximetry 94 11/13/23 18:00 11/13/23 19:24 11/13/23 23:41 Temperature 97.8 F 98.4 F Pulse Rate 105 H 79 74 Respiratory Rate 20 18 Blood Pressure 128/83 149/84 H Pulse Oximetry 97 97 11/14/23 00:17 11/14/23 00:41 11/14/23 03:55 Temperature 98.4 F Pulse Rate 80 75 71 Respiratory Rate 20 Blood Pressure 138/95 H Pulse Oximetry 96 96 11/13/23 20:00 11/13/23 22:00 11/14/23 00:00 Temperature Pulse Rate 111 H 114 H 103 H Respiratory Rate Blood Pressure Pulse Oximetry 11/14/23 02:00 11/14/23 06:25 Temperature Pulse Rate 82 102 H Respiratory Rate Blood Pressure Pulse Oximetry Intake/Output Intake/Output: Intake & Output 11/11/23 11/12/23 11/13/23 11/14/23 23:59 23:59 23:59 23:59 Intake Total 4970 650 Output Total 1000 Balance 3970 650 Meds/Results Medications: Active Medications Generic Name Dose Route Start Last Admin Trade Name Freq PRN Reason Stop Dose Admin Aspirin 325 mg 11/13/23 09:05 11/13/23 10:14 Aspirin 325 Mg Enteric Tablet PO 325 mg QAM SEEMA Administration Metoprolol Tartrate 25 mg 11/13/23 12:00 11/14/23 06:25 Metoprolol Tartrate 25 Mg Tablet PO 25 mg Q6HR SEEMA Administration Miscellaneous Information 0 each 11/13/23 00:01 Orgovyx 120mg Abiraterone 250mg Verifed By Pharmacy Please Enter Orders XX 12/13/23 00:00 [facility] Radiology Results: ITS Impressions Chest X-Ray 11/13/23 05:48 Impression: Clear lungs. Head CT 11/13/23 19:34 IMPRESSION: 1. Normal brain. Labs Labs: Laboratory Results - last 24 hr 11/13/23 08:36 Troponin I < 0.012 Amg Follow-up Billing Hospital Follow-up Hospital Follow-up: [id number] Subs Hosp Care Mod
[2023-11-14 08:16] LABS: Lactic Acid Reflex 1.5 mmol/L (0.7-2.0)
[2023-11-14] MEDS: METOPROLOL SUCCINATE EXT REL 100 MG TABCR PO (10:12)
[2023-11-14] MEDS: ASPIRIN 325 MG ENTERIC TABLET PO (10:12)
--- NOTE | 2023-11-14 17:39 | WPDURCON ---
Assessment and Plan Assessment and plan (1) Prostate cancer: Code(s): C61 - Malignant neoplasm of prostate Status: Acute Assessment and Plan: Patient with hormone sensitive, oligometastatic prostate cancer being managed with, what we call, triple therapy (pelvic radiation + androgen deprivation [Orgovyx] + androgen receptor inhibiting agents [Abiraterone/Prednisone]). Patient has started these oral medications in April 2023 and completed his pelvic radiation in July 2023. To this point he has had no significant side effects from these medications and I doubt that his syncope is related. Urology Consult Note HPI Date Seen: 11/14/23 Requesting Physician: Gatito Lima MD Primary Care Provider: Geovanna Joy DO Consult Narrative Narrative: Darvin Lopez is a 73 year old male Who is very well known to me with a somewhat complicated history of prostate cancer. Was 1st diagnosed December 2017 was found to a somewhat low risk cancer that we opted to treat with active surveillance. A year later, however, a repeat prostate biopsy demonstrated progression to a more intermediate-risk cancer. at that time he underwent PET imaging that demonstrated low volume metastatic disease to pelvic lymph nodes. Decision was made to treat with pelvic radiation in combination with androgen deprivation (Orgovyx) and an androgen receptor inhibiting agents (abiraterone plus prednisone). combination of medication was started in April 2023 and the pelvic radiation was completed in July 2023. Patient has tolerated this regimen well without significant side effects. He is now admitted with syncopal episodes of uncertain etiology Review of Systems Cardiovascular: Cardiovascular: Denies chest pain, Denies lightheadedness, Denies palpitations and Denies dyspnea Respiratory: Respiratory: Denies dyspnea Gastrointestinal: Gastrointestinal: Denies diarrhea, Denies nausea and Denies vomiting Genitourinary: Genitourinary: Denies hematuria and Denies dysuria Endocrine: Endocrine: Denies palpitations PMFSH Family History Family History Father Family history of cardiovascular disease Sibling Diabetes mellitus Heart disease Mother Carcinoma of colon Grandparent Alcohol abuse Social History Social History Smoking status: Never smoker Tobacco type: cigars Alcohol intake: current Drinks per week: 3 Substance use: never Substance use type: does not use Do You Feel Safe in your Home?: Yes Lack of Transportation: No Lack of Food: Never True Current Housing: I Have Housing Concerned About Future Housing: No Difficulty Paying Gas/Electric Bills: No Difficulty Paying for Meds: No Currently Unemployed: No Education: Bachelor's Degree Difficulty w/ Childcare or Family Care: No Living arrangements: with family Spiritual care concerns: No Meds Home Medications and Allergies Home Medications Medication Instructions Recorded Confirmed Type abiraterone 250 mg tablet 1,000 mg PO DAILY 07/16/23 11/13/23 History relugolix 120 mg tablet (Orgovyx) 120 mg PO DAILY 07/16/23 11/13/23 History aspirin 325 mg tablet 325 mg PO DAILY 07/22/23 11/13/23 History metoprolol succinate 50 mg 50 mg PO DAILY 11/13/23 11/13/23 History tablet,extended release 24 hr prednisone 5 mg tablet 5 mg PO DAILY 11/13/23 11/13/23 History Allergies Allergy/AdvReac Type Severity Reaction Status Date / Time PCN Allergy Unknown Unknown Uncoded 11/13/23 02:21 Vital Signs Vital Signs - 24 hr 11/13/23 18:38 11/13/23 18:00 11/13/23 19:24 Temperature 97.8 F Pulse Rate 104 H 105 H 79 Respiratory Rate 20 Blood Pressure 128/83 Pulse Oximetry 97 11/13/23 23:41 11/14/23 00:17 11/14/23 00:41 Temperature 98.4 F Pulse Rate 74 80 75 Respiratory Rate 18 Blood Pressure 149/84 H P
[2023-11-14] MEDS: dilTIAZem HCL 30 MG TABLET PO (20:34)
[2023-11-14] MEDS: BISACODYL 5 MG TABLET EC PO (20:46)
[2023-11-15] VITALS (11 sets, daily range): BP systolic 125–147; BP diastolic 84–85; PULSE 53–117; RESP 14–20; TEMP 36.2–37.1; O2SAT 95–97
[2023-11-15] MEDS: dilTIAZem HCL 30 MG TABLET PO (01:40)
[2023-11-15 05:33] LABS: Prostate Specific Antigen 0.2 ng/mL (< OR = 4.0)
--- NOTE | 2023-11-15 07:16 | PM.PNCARD ---
Progress Note: A&P Assessment and Plan (1) Atrial flutter with rapid ventricular response: Code(s): I48.92 - Unspecified atrial flutter Status: Acute Assessment and Plan: Rapid HR, but could be due to volume depletion with it. [id number] 2. Due to prostate cancer and risk of bleeding will stay with aspirin. At home was on Metoprolol Succinate 100 mg daily for rate control. Started Diltiazem 30 mg PO every 6 hours, change to 120 mg CD daily. If HR and BP remain controlled, may d/c home from cardiology standpoint. F/U with me in 2 weeks. (2) Near syncope: Code(s): R55 - Syncope and collapse Status: Acute Assessment and Plan: Due to volume depletion likely. (3) Hypertension: Code(s): I10 - Essential (primary) hypertension Status: Acute Assessment and Plan: High. Started Diltiazem. Subjective Date/time seen: 11/15/23 07:16 Interval history: No longer having dizziness or nausea. No chest pain or sob. Exam Const: General: cooperative, healthy appearing and comfortable Orientation/consciousness: oriented to person, oriented to place and oriented to time Resp: Auscultation: clear to auscultation bilaterally, no crackles, no rales, no rhonchi and no wheezes Cardio: Rate: regular rate Rhythm: abnormal rhythm Heart sounds: no murmurs Peripheral pulses: dorsalis pedis present Neuro: General: oriented to person, oriented to place and oriented to time Extrem: Right lower extremity: no edema Left lower extremity: no edema Objective Data Vital Signs Vital Signs: Vital Signs - 24 hr 11/14/23 08:00 11/14/23 08:00 11/14/23 08:05 Temperature 97.2 F L 97.2 F L Pulse Rate 102 H 102 H 111 H Respiratory Rate 20 20 Blood Pressure 152/92 H 152/92 H 134/107 H Pulse Oximetry 96 96 11/14/23 08:05 11/14/23 10:12 11/14/23 11:58 Temperature 97.2 F L Pulse Rate 125 H 106 H 83 Respiratory Rate 20 Blood Pressure 149/103 H 134/104 H Pulse Oximetry 96 11/14/23 08:00 11/14/23 10:00 11/14/23 16:19 Temperature 97.0 F L Pulse Rate 111 H 110 H 118 H Respiratory Rate 20 Blood Pressure 140/100 H Pulse Oximetry 98 11/14/23 12:00 11/14/23 14:00 11/14/23 16:00 Temperature Pulse Rate 125 H 116 H 112 H Respiratory Rate Blood Pressure Pulse Oximetry 11/14/23 18:00 11/14/23 19:57 11/14/23 19:58 Temperature 97.2 F L 97.2 F L Pulse Rate 122 H 107 H 101 H Respiratory Rate 20 20 Blood Pressure 150/105 H 143/107 H Pulse Oximetry 96 97 11/14/23 20:00 11/14/23 23:26 11/15/23 00:30 Temperature 97.2 F L 97.3 F L Pulse Rate 112 H 69 77 Respiratory Rate 22 H 20 Blood Pressure 157/97 H 168/101 H Pulse Oximetry 96 97 97 11/14/23 20:00 11/14/23 22:00 11/15/23 00:00 Temperature Pulse Rate 124 H 105 H 96 Respiratory Rate Blood Pressure Pulse Oximetry 11/15/23 02:00 11/15/23 04:00 11/15/23 05:32 Temperature Pulse Rate 98 94 73 Respiratory Rate Blood Pressure Pulse Oximetry 11/15/23 07:03 Temperature Pulse Rate 70 Respiratory Rate Blood Pressure Pulse Oximetry Intake/Output Intake/Output: Intake & Output 11/12/23 11/13/23 11/14/23 11/15/23 23:59 23:59 23:59 23:59 Intake Total 4970 1600 Output Total 1000 0 Balance 3970 1600 0 Meds/Results Medications: Active Medications Generic Name Dose Route Start Last Admin Trade Name Fidelia PRN Reason Stop Dose Admin Aspirin 325 mg 11/13/23 09:05 11/14/23 10:12 Aspirin 325 Mg Enteric Tablet PO 325 mg QAM SEEMA Administration Bisacodyl 5 mg 11/14/23 19:04 11/14/23 20:46 Bisacodyl 5 Mg Tablet Ec PO 5 mg QAM PRN Administration Constipation Diltiazem HCl 120 mg 11/15/23 09:00 Diltiazem Hcl Cd 120 Mg Cap.24hr PO QAM SEEMA Metoprolol Succinate 100 mg 11/14/23 09:00 11/14/23 10:12 Metoprolol Succinate Ext Rel 100 Mg Tabcr PO 100 mg QAM SEEMA Administration Miscellaneous Inf
--- NOTE | 2023-11-15 07:35 | PM.DS ---
DS: Admitting Diagnosis Discharge Date 11/15/2023 Admitting Diagnosis Atrial flutter Near syncope DS: Discharge Diagnosis Discharge Diagnosis (1) Atrial flutter with rapid ventricular response: Code(s): I48.92 - Unspecified atrial flutter Status: Acute (2) Nausea & vomiting: Qualifiers: Vomiting type: unspecified Qualified Code(s): R11.2 - Nausea with vomiting, unspecified Code(s): R11.2 - Nausea with vomiting, unspecified Status: Resolved (3) Near syncope: Code(s): R55 - Syncope and collapse Status: Acute (4) Atrial flutter: Code(s): I48.92 - Unspecified atrial flutter Status: Acute (5) Prostate cancer: Code(s): C61 - Malignant neoplasm of prostate Status: Acute DS: Summary Hospital Course Reason for hospitalization: Patient is a 73-year-old male presents to the emergency department complaining of lightheadedness.? Patient states for the past approximately 1 hour he has been feeling lighthea Hospital Course: Chief Complaint: Patient is a 73-year-old male presents to the emergency department complaining of lightheadedness.? Patient states for the past approximately 1 hour he has been feeling lightheaded and faint Narrative: ?Patient states he went to the go to the bathroom and progressively became more lightheaded and denies fully passing out or having any injuries.? Patient admits to consuming alcohol tonight of multiple beers and a shot and some states that he will likely have more than this.? Patient denies being a daily drinker having any history of alcohol withdrawal.? Patient denies any illicit drug use.? Patient denies chest pain, difficulty breathing, diarrhea, recent illness, fever, sore throat nasal congestion, abdominal pain.? Patient admits to nausea vomiting that started over the past 1 hour with the vomiting.? Nonbloody nonbilious.? Patient does not have any sick contacts.? Patient admits to taking was medications as prescribed without any recent changes.? Patient admits to history of atrial flutter with RVR and is on metoprolol with his dose changed approximate ?Interval Hx: 11/14/2023 Pt seen this am, he is up by the bedside, orthostatic vitals are being measured, he denies any dizziness, blurred vision, nausea vomiting, chest pain fever chills. Pt states he had no overnight events. He is requesting discharge to home. Plan to follow up with urologist for medication clarification. continue to monitor until discharge. Pt was seen by cardiology please see HPI Below: Consult date/time: 11/13/23? 09:03 Reason For Visit: Atrial Flutter with RVR Narrative: 73 yr old man who is my regular cardiology patient and a patient of Dr. Joy presents to ER [facility]. He has a history of atrial flutter, hypertension, prostate cancer, GAEL on CPAP (Sees Elaine Cardoza). Reports he saw his PCP yesterday morning for routine check up and everything was fine. He ordered take out at restaurant and while waiting had a bourbon with diet coke, went home had 2 beers with his meal. He went to bed, and got up to use restroom at 2:30 am and felt extremely dizzy almost passing out that he had to crawl back to bed. He told his who called ambulance. He still has some nausea and dizziness while in bed now. Normally he is able to walk a mile without any problems. Admits to snoring, stops breathing and daytime sleepiness. Denies orthopnea, PND, edema, palpitations. Cardiovascular Procedures Echo/MUGA:: 08/27/23 Echo: EF 55-60%, diastolic dysfunction (E/e' 13), mod LAE, mild AI/MR/TR. Electrophysiology:: 07/16/23 EKG: Atrial flutter at 115 bpm. Stress Tests:: 08/06/23 Sleep study: Mild GAEL with desat 90%. (1) Atrial flutter with rapid ventricular response: ?Code(s): I48.92 - Unspecified atrial flutter ?Status:?Acute ?Assessment and Plan: Rapid HR, but could be due to volume depletion with it. [id number] 2. Due to prostate cancer and risk of bl
[2023-11-15] MEDS: METOPROLOL SUCCINATE EXT REL 100 MG TABCR PO (10:00)
[2023-11-15] MEDS: dilTIAZem HCL CD 120 MG CAP.24HR PO (10:00)
[2023-11-15] MEDS: ASPIRIN 325 MG ENTERIC TABLET PO (10:32)
[2023-11-20 13:23] LABS: Testosterone Total <1 ng/dL (250-1100)
== END 2023-11-15 15:41 | disposition home or self-care (01) | DRG 641 ==
LOC: ANHED 05:23 → ANHIMU 05:45
PROVIDERS: Urology; Admitting Provider Internal Medicine; Emergency Provider Student in an Organized Health Care Education/Training Program; PCP Family Medicine; Visit Provider Nurse Practitioner
DX: E86.1 Hypovolemia (principal); I48.92 Unspecified atrial flutter; C61 Malignant neoplasm of prostate; D64.9 Anemia, unspecified; E78.5 Hyperlipidemia, unspecified; G47.33 Obstructive sleep apnea (adult) (pediatric); Z20.822 Contact with and (suspected) exposure to COVID-19; Z87.891 Personal history of nicotine dependence; Z79.82 Long term (current) use of aspirin
CPT/HCPCS: 36415; 70450; 71045; 80053; 80307; 81003; 83605; 83690; 83735; 84153; 84403; 84443; 84484; 85025; 85380; 85610; 85730; 87637; 93005; 93880; 96361; 96365; 96366; 96367; 96375; 96376; 99285; A9270; G0378; J2405; J2550; J3475; J7030

== ENCOUNTER 2024-06-03 01:07 | Day surgery (SDC) | payer MEDICARE, SELFPAY ==
[2024-05-12 13:39] VITALS: BMI 26.9
[2024-06-03] VITALS (8 sets, daily range): BP systolic 102–140; BP diastolic 77–99; PULSE 93–146; RESP 18–24; TEMP 37.1; O2SAT 94–100; BMI 26.8
[2024-06-03] MEDS: METOPROLOL TARTRATE INJ 5 MG/5 ML VIAL IV PUSH ×2 (12:51→13:05)
[2024-06-03] MEDS: LACTATED RINGERS 1,000 ML 150 ML IV CONT (12:53)
--- NOTE | 2024-06-03 12:55 | SUR.PREOP ---
1245: Pt. pulse 145. Dr. West notified. Pt. connected to monitor and Dr. West reviewed heart monitor strip. Order received.
--- NOTE | 2024-06-03 13:26 | WPDANESEPPF ---
Anes - Initial Pre Proc Eval Procedure: Operation Date: 06/03/24 13:30 Proposed Procedures p Flexible Sigmoidoscopy - Gil Mendes MD Date/Time: 06/03/24 13:26 Surgeon: Gil Mendes MD Pre Op Diagnosis: Hemorrhage of anus and rectum, anal fissure unspec Patient Data Age: 73 Gender: M Height: 1.83 m Weight: 89.8 kg Last Vital Signs Temp 37.1 C 06/03/24 12:36 Pulse 113 H 06/03/24 13:05 Resp 18 06/03/24 12:36 BP 140/99 H 06/03/24 12:36 Pulse Ox 100 06/03/24 12:36 O2 Del Method Room Air 06/03/24 12:36 Allergies Allergy/AdvReac Type Severity Reaction Status Date / Time PCN Allergy Unknown Unknown Uncoded 06/03/24 12:35 Home Medications Medication Instructions Recorded Confirmed Type abiraterone 250 mg tablet 1,000 mg PO DAILY 07/16/23 05/22/24 History relugolix 120 mg tablet (Orgovyx) 120 mg PO DAILY 07/16/23 05/22/24 History aspirin 325 mg tablet 325 mg PO DAILY 07/22/23 05/22/24 History prednisone 5 mg tablet 5 mg PO DAILY 11/13/23 05/22/24 History diltiazem HCl 120 mg capsule,24 120 mg PO QAM #90 caps 12/09/23 05/22/24 Rx hr,extended release metoprolol succinate 100 mg 100 mg PO DAILY #90 tabs 12/09/23 05/22/24 Rx tablet,extended release 24 hr losartan 25 mg tablet 25 mg PO DAILY #90 tabs 05/15/24 05/22/24 Rx nitroglycerin 0.4 % (w/w) rectal RECTAL 05/22/24 05/22/24 History ointment Patient hx anesthesia problems: none Family hx anesthesia problems: none Results Review: All pre-operative results and documents have been reviewed as part of the pre-operative evaluation. [facility] Family History Family History Father Family history of cardiovascular disease Sibling Diabetes mellitus Heart disease Mother Carcinoma of colon Grandparent Alcohol abuse Social History Social History Smoking status: Never smoker Tobacco type: cigars Alcohol intake: current Drinks per week: 1 Substance use: never Substance use type: does not use Do You Feel Safe in your Home?: Yes Lack of Transportation: No Lack of Food: Never True Current Housing: I Have Housing Concerned About Future Housing: No Difficulty Paying Gas/Electric Bills: No Difficulty Paying for Meds: No Currently Unemployed: No Education: Bachelor's Degree Difficulty w/ Childcare or Family Care: No Living arrangements: with family Spiritual care concerns: No Anes - Eval Final PreProcedure Day of Procedure 06/03/24 13:26 Patient weight: overweight Heart: irregular rhythm Lungs: clear to auscultation Airway: Mallampati scale class II Neurological: alert and oriented Last oral intake: >/= 8 hours ASA classification: III Emergent: no Anesthetic plan: proceed Anesthesia type and monitoring: general GIVS and standard monitoring Results Review: All pre-operative results and documents have been reviewed as part of the pre-operative evaluation. Informed Consent: The patient's anesthetic plan and its attendant risks and benefits were discussed with the patient/family/POA. Questions were solicited and answers provided to the satisfaction of the patient/family/POA.
--- NOTE | 2024-06-03 13:27 | SUR.PREOP ---
1251- administered 5mg metoprolol IV per order for HR 145 1300- spoke with Dr. West, HR now 115. Per Dr. West administer another 5mg IV metoprolol. 1305- 5mg metoprolol IV administered per order. 1325- HR now 93, BP 135/98. Dr. West at bedside. Per Dr. eWst okay to proceed with procedure.
--- NOTE | 2024-06-03 13:41 | PM.HPGS ---
History of Present Illness History of Present Illness Consent: Risks, benefits, and alternatives have been discussed and questions answered. Patient agrees to proceed with procedure. Chief complaint: Hemorrhage of anus and rectum, anal fissure unspec Narrative: Darvin Lopez is a 73 year old male with intermittent rectal bleeding, colonoscopy 2021 with hemorrhoids Review of Systems Review of Systems: All systems reviewed & are unremarkable except as noted in HPI and below PMFSH Family History Family History Father Family history of cardiovascular disease Sibling Diabetes mellitus Heart disease Mother Carcinoma of colon Grandparent Alcohol abuse Social History Social History Smoking status: Never smoker Tobacco type: cigars Alcohol intake: current Drinks per week: 1 Substance use: never Substance use type: does not use Do You Feel Safe in your Home?: Yes Lack of Transportation: No Lack of Food: Never True Current Housing: I Have Housing Concerned About Future Housing: No Difficulty Paying Gas/Electric Bills: No Difficulty Paying for Meds: No Currently Unemployed: No Education: Bachelor's Degree Difficulty w/ Childcare or Family Care: No Living arrangements: with family Spiritual care concerns: No Meds Home Medications and Allergies Home Medications Medication Instructions Recorded Confirmed Type abiraterone 250 mg tablet 1,000 mg PO DAILY 07/16/23 05/22/24 History relugolix 120 mg tablet (Orgovyx) 120 mg PO DAILY 07/16/23 05/22/24 History aspirin 325 mg tablet 325 mg PO DAILY 07/22/23 05/22/24 History prednisone 5 mg tablet 5 mg PO DAILY 11/13/23 05/22/24 History diltiazem HCl 120 mg capsule,24 120 mg PO QAM #90 caps 12/09/23 05/22/24 Rx hr,extended release metoprolol succinate 100 mg 100 mg PO DAILY #90 tabs 12/09/23 05/22/24 Rx tablet,extended release 24 hr losartan 25 mg tablet 25 mg PO DAILY #90 tabs 05/15/24 05/22/24 Rx nitroglycerin 0.4 % (w/w) rectal RECTAL 05/22/24 05/22/24 History ointment Allergies Allergy/AdvReac Type Severity Reaction Status Date / Time PCN Allergy Unknown Unknown Uncoded 06/03/24 12:35 Vital Signs Vital Signs - 24 hr 06/03/24 12:36 06/03/24 12:51 06/03/24 13:05 Temperature 98.8 F Pulse Rate 145 H 146 H 113 H Respiratory Rate 18 Blood Pressure 140/99 H Pulse Oximetry 100 Oxygen Delivery Room Air 06/03/24 13:00 06/03/24 13:25 Temperature Pulse Rate 115 H 93 Respiratory Rate Blood Pressure 135/98 H Pulse Oximetry Oxygen Delivery Exam Const: General: comfortable and no acute distress HENMT: Face/Nose/Sinus: Normal nares present Eyes: General: appearance normal, both eyes and all related structures Neck: Neck: no JVD Resp: Auscultation: clear to auscultation bilaterally Cardio: Rate: regular rate Rhythm: regular rhythm GI: Inspection: non-distended GI Palp: Yes Soft to palpation Skin: General skin exam: normal color Neuro: General: gait normal Speech: normal speech Extrem: General: normal to inspection Psych: Mental Status: mental status grossly normal Assessment and Plan Assessment and plan (1) Rectal bleeding: Code(s): K62.5 - Hemorrhage of anus and rectum Status: Acute Assessment and Plan: sigmoidoscopy probably perianal source asymptomatic now
== END 2024-06-03 14:25 | disposition home or self-care (01) ==
PROVIDERS: PCP Family Medicine; Referring Provider Nurse Practitioner; Visit Provider Internal Medicine Gastroenterology
PROC: 0DJD8ZZ Inspection of Lower Intestinal Tract, Via Natural or Artificial Opening Endoscopic (ICD-10-PCS; CPT 45330; principal; 2024-06-03 13:30)
DX: D12.5 Benign neoplasm of sigmoid colon (principal); K55.20 Angiodysplasia of colon without hemorrhage; Z79.82 Long term (current) use of aspirin
CPT/HCPCS: 45338; 45346; 88305; J2001; J2704; J7120

== ENCOUNTER 2024-06-30 13:39 | Outpatient (CLI) | payer MEDICARE, SELFPAY ==
--- NOTE | 2024-06-30 14:45 | NEURO_ITS ---
Impression: # Complains of numbness of legs. # Sensory/Motor axonal neuropathy. # Needle/EMG exam abnormal. Nerve Conduction Studies Anti Sensory Summary Table Stim Site NR Peak (ms) P-T Amp (?V) Site1 Site2 Delta-P (ms) Dist (cm) Hernan (m/s) Left Sup Fibular Anti Sensory (Ant Lat Mall) NO RESPONSE 14 cm NR 14 cm Ant Lat Mall 16.0 Right Sup Fibular Anti Sensory (Ant Lat Mall) NO RESPONSE 14 cm NR 14 cm Ant Lat Mall 16.0 Left Sural Anti Sensory (Lat Mall) NO RESPONSE Calf NR Calf Lat Mall 16.0 Right Sural Anti Sensory (Lat Mall) NO RESPONSE Calf NR Calf Lat Mall 16.0 Motor Summary Table Stim Site NR Onset (ms) O-P Amp (mV) Site1 Site2 Delta-0 (ms) Dist (cm) Hernan (m/s) Left Peroneal Motor (Vastus Med) Ankle 4.5 2.5 Popit Ankle 13.9 44.0 32 Popit 18.4 1.1 Right Peroneal Motor (Vastus Med) Ankle 4.1 1.3 Popit Ankle 11.5 45.0 39 Popit 15.6 0.7 Left Tibial Motor (Abd Burgos Brev) Ankle 4.9 0.8 Knee Ankle 12.4 46.0 37 Knee 17.3 0.9 Right Tibial Motor (Abd Burgos Brev) Ankle 4.8 3.1 Knee Ankle 11.8 44.0 37 Knee 16.6 1.6 F Wave Studies NR F-Lat (ms) L-R F-Lat (ms) Left Peroneal (Mrkrs) (EDB) 62.78 0.28 Right Peroneal (Mrkrs) (EDB) 62.50 0.28 Left Tibial (Mrkrs) (Abd Hallucis) 62.75 0.70 Right Tibial (Mrkrs) (Abd Hallucis) 62.05 0.70 EMG Side Muscle Nerve Root Ins Act Fibs Amp Dur Recrt Comment Right AntTibialis Dp Br Fibular L4-5 Nml Nml Incr >12ms +1 Right Gastroc Tibial S1-2 Nml Nml Incr >12ms +1 Right Fibularis Long Sup Br Fibular L5-S1 Nml Nml Incr >12ms +1 Right Flex Dig Long Tibial L5-S2 Nml Nml Incr >12ms +1 Right Ext Dig Brev Dp Br Fibular L5, S1 Nml Nml Incr >12ms +1 Right QuadratusFem QuadFemoris L4-5, S1 Nml Nml Incr >12ms +1 Left AntTibialis Dp Br Fibular L4-5 Nml Nml Incr >12ms +1 Left Gastroc Tibial S1-2 Nml Nml Incr >12ms +1 Left Fibularis Long Sup Br Fibular L5-S1 Nml Nml Incr >12ms +1 Left Flex Dig Long Tibial L5-S2 Nml Nml Incr >12ms +1 Left Ext Dig Brev Dp Br Fibular L5, S1 Nml Nml Incr >12ms +1 Left QuadratusFem QuadFemoris L4-5, S1 Nml Nml Incr >12ms +1 MTDD
== END 2024-06-30 13:40 | disposition home or self-care (01) ==
PROVIDERS: PCP Family Medicine; Visit Provider Family Medicine
DX: G62.9 Polyneuropathy, unspecified (principal)
CPT/HCPCS: 95886; 95910

== ENCOUNTER 2024-07-07 07:45 | Outpatient (CLI) | payer MEDICARE, SELFPAY ==
--- NOTE | ~2024-07-07 | NM_ITS ---
EXAMINATION: NM maureen stress w perfusion DATE: 07/07/2024 09:48 INDICATION: Unspecified atrial flutter. Tachycardia. TECHNIQUE: Rest images were obtained following intravenous administration of 11.0 mCi Tc99m tetrofosm in (Myoview). The patient was infused intravenously with Lexiscan (regadenoson). Then, 35.0 mCi Tc99m tetrofosmin (Myoview) was administered intravenously, and stress images were obtained. Data was johnnie nstructed into short axis and horizontal and vertical long axis SPECT images. Gated SPECT images were also obtained. COMPARISON: PET/CT 04/10/2023 FINDINGS: There is no definite reversible or fixed perfusion abnormality to suggest ischemia or infar ction. There is no segmental wall motion abnormality. Left ventricular ejection fraction measures > 70%. IMPRESSION: 1. No definite ischemia or infarct. 2. Normal left ventricular ejection fraction measuring >70%. Reviewed, dictated and finalized at location A.
--- NOTE | 2024-07-07 07:50 | EST_ITS ---
Patient Info Name: Darvin Lopez Age: 73 years : 1950 Gender: Male Ht: 72 in Wt: 200 lbs BSA: 2.16 m2 HR: 68 bpm BP: 149 / 91 mmHg Heart Rhythm: Atrial Fibrillation Exam Date: 07/07/2024 8:57 AM Exam Location: Echo Lab Patient Status: Outpatient Admit Date: 07/07/2024 Staff Ordering Physician: Jorge Deutsch DO Attending Provider: Jorge Deutsch DO Exercise Technologist: Mila Parker RDCS Exercise Physician: Jorge Deutsch DO Exam Type: CA stress maureen w NM Study Info A regadenoson stress test was performed. Summary 1. 1. Negative lexiscan stress test for ischemic ST changes by ECG criteria. 2. 2. Baseline hypertension. 3. 3. Nuclear scan to follow and will be reported separately. Please correlate with it. 4. 4. Patient informed of the above results. Protocol: Lexiscan Stress ECG Details Stage: REST Duration (min): 1 min : 19 sec HR (bpm): 68 SBP (mmHg): 149 DBP (mmHg): 91 Stage: REST Duration (min): 4 min : 41 sec HR (bpm): 71 SBP (mmHg): 149 DBP (mmHg): 91 Stage: STAGE 1 Duration (min): 0 min : 59 sec HR (bpm): 86 SBP (mmHg): 157 DBP (mmHg): 84 Stage: RECOVERY Duration (min): 1 min : 0 sec HR (bpm): 82 SBP (mmHg): 157 DBP (mmHg): 84 Stage: RECOVERY Duration (min): 2 min : 0 sec HR (bpm): 69 SBP (mmHg): 157 DBP (mmHg): 84 Stage: RECOVERY Duration (min): 3 min : 0 sec HR (bpm): 72 SBP (mmHg): 141 DBP (mmHg): 82 Stage: RECOVERY Duration (min): 3 min : 5 sec HR (bpm): 72 SBP (mmHg): 141 DBP (mmHg): 82 Rest HR: 71 bpm Peak HR: 91 bpm Rest Sys BP: 149 mmHg Peak Sys BP: 157 mmHg Max Pred HR: 146 bpm % Max Pred HR: 62 % Target HR: 124 bpm Max RPP: 14,287 bpm*mmHg Termination Reason: Completed protocol Cardiac Symptoms: Shortness of breath Total Time: 1 min : 0 sec Rest Norris BP: 91 mmHg Peak Norris BP: 84 mmHg Total Dose: 0.4 mg Resting ECG Atrial flutter. Stress ECG No ST changes. Arrhythmias No other arrhythmias. Report Signatures
== END 2024-07-07 07:46 | disposition home or self-care (01) ==
PROVIDERS: PCP Family Medicine; Visit Provider Internal Medicine Cardiovascular Disease
DX: I48.92 Unspecified atrial flutter (principal); R00.0 Tachycardia, unspecified; R06.09 Other forms of dyspnea
CPT/HCPCS: 78452; 93017; A9502; J2785

== ENCOUNTER 2024-10-09 10:01 | Outpatient (CLI) | payer MEDICARE, SELFPAY ==
[2024-10-09 10:31] LABS: Glucose Fasting 117 mg/dL
[2024-10-09 12:38] LABS: Glucose 1 Hour 186 mg/dL
[2024-10-09 13:27] LABS: Glucose 2 Hour 109 mg/dL
== END 2024-10-09 10:02 | disposition home or self-care (01) ==
PROVIDERS: PCP Family Medicine; Visit Provider Psychiatry & Neurology Neurology
DX: Z13.1 Encounter for screening for diabetes mellitus (principal); R20.0 Anesthesia of skin; R20.2 Paresthesia of skin; G62.9 Polyneuropathy, unspecified
CPT/HCPCS: 36415; 82951

== ENCOUNTER 2024-10-20 00:19 | Day surgery (SDC) | payer MEDICARE, SELFPAY ==
[2024-10-08 11:08] VITALS: BMI 26.4
--- NOTE | 2024-10-20 07:36 | P.PNAN_ITS ---
Anes - Initial Pre Proc Eval Procedure: Operation Date: 10/20/24 10:00 Proposed Procedures p Flexible Sigmoidoscopy - Gil Mendes MD Date/Time: 10/20/24 07:36 Surgeon: Gil Mendes MD Pre Op Diagnosis: radiation proctitis Patient Data Age: 74 Gender: M Height: 1.83 m Weight: 88.5 kg Allergies Allergy/AdvReac Type Severity Reaction Status Date / Time Penicillins Allergy Unknown Verified 10/20/24 08:52 Home Medications ?Medication ?Instructions ?Recorded ?Confirmed ?Type abiraterone 250 mg tablet 1,000 mg PO DAILY 07/16/23 10/20/24 History relugolix 120 mg tablet (Orgovyx) 120 mg PO DAILY 07/16/23 10/20/24 History aspirin 325 mg tablet 325 mg PO DAILY 07/22/23 10/20/24 History prednisone 5 mg tablet 5 mg PO DAILY 11/13/23 10/20/24 History losartan 25 mg tablet 25 mg PO DAILY #90 tabs 05/15/24 10/20/24 Rx metoprolol succinate 100 mg See Rx Instructions .Route 08/19/24 10/08/24 Rx tablet,extended release 24 hr .COMPLEX #90 tabs diltiazem HCl 240 mg capsule,24 See Rx Instructions .Route 09/28/24 10/20/24 Rx hr,extended release .COMPLEX #30 caps flecainide 100 mg tablet See Rx Instructions .Route 10/07/24 10/20/24 Rx .COMPLEX #60 tabs buspirone 5 mg tablet 5 mg PO BID #60 tabs 10/08/24 10/20/24 Rx ofloxacin 0.3 % eye drops See Rx Instructions LEFT EYE 10/20/24 Rx .COMPLEX #5 mL Patient hx anesthesia problems: none Family hx anesthesia problems: none Results Review: All pre-operative results and documents have been reviewed as part of the pre- operative evaluation. [facility] Past Medical History Medical History (Updated 10/20/24 @ 09:16 by Gil Mendes MD) Blood in stool GAEL (obstructive sleep apnea) Hypertension Atrial flutter Peripheral neuropathy Sigmoidoscopy performed Radiation proctitis Family History Family History Father Family history of cardiovascular disease Sibling Diabetes mellitus Heart disease Mother Carcinoma of colon Grandparent Alcohol abuse Social History Social History Smoking status: Never smoker Tobacco type: cigars Alcohol intake: current Drinks per week: 3 Substance use: never Substance use type: does not use Do You Feel Safe in your Home?: Yes Lack of Transportation: No Lack of Food: Never True Current Housing: I Have Housing Concerned About Future Housing: No Difficulty Paying Gas/Electric Bills: Decline to Answer Difficulty Paying for Meds: Decline to Answer Currently Unemployed: Decline to Answer Education: Bachelor's Degree Difficulty w/ Childcare or Family Care: YES Living arrangements: with family Spiritual care concerns: No Anes - Eval Final PreProcedure Day of Procedure 10/20/24 07:36 Patient weight: overweight Heart: regular rate and rhythm Lungs: clear to auscultation Airway: Mallampati scale class II Neurological: alert and oriented Last oral intake: >/= 8 hours ASA classification: III Emergent: no Anesthetic plan: proceed Anesthesia type and monitoring: general GIVS and standard monitoring Results Review: All pre-operative results and documents have been reviewed as part of the pre- operative evaluation. Informed Consent: The patient's anesthetic plan and its attendant risks and benefits were discussed with the patient/family/POA. Questions were solicited and answers provided to the satisfaction of the patient/family/POA.
[2024-10-20 08:55] VITALS: BP 150/100; PULSE 121; RESP 18; TEMP 36.1; O2SAT 98; BMI 27.1
[2024-10-20] MEDS: LACTATED RINGERS 1,000 ML 150 ML IV CONT (09:00)
--- NOTE | 2024-10-20 09:03 | SUR.PREOP ---
[address] Marely regarding pt's heart rate in the 120. Discussed medication history and when pt had taken it last. 0850 hooked patient up to 3 lead heart monitor and noted patient's hr in 120's afib [address] Marley regarding medication last taken and current HR and rhythm. Orders received. Patient's left eye is red and slightly swollen on the eye lid and surrounding tissue. Asked pt about his eye and he said he has a call out to his primary and is hoping to hear from them to possible get started on antiboitic eye drops. No drainage noted to his eye. Encourage pt to make sure he gets treated for his eye. pt voiced understanding.
[2024-10-20 09:08] VITALS: PULSE 124
[2024-10-20] MEDS: METOPROLOL TARTRATE INJ 5 MG/5 ML VIAL 2.5 MG IV PUSH (09:08)
[2024-10-20 09:13] VITALS: PULSE 124
[2024-10-20] MEDS: METOPROLOL TARTRATE INJ 5 MG/5 ML VIAL IV PUSH (09:13)
--- NOTE | 2024-10-20 09:15 | PM.HPGS ---
History of Present Illness History of Present Illness Consent: Risks, benefits, and alternatives have been discussed and questions answered. Patient agrees to proceed with procedure. Chief complaint: radiation proctitis Narrative: Darvin Lopez is a 74 year old male with intermittent blood in stools, 05/2024 had APC of radiation proctitis. Review of Systems Review of Systems: All systems reviewed & are unremarkable except as noted in HPI and below PMFSH Past Medical History Medical History (Updated 10/20/24 @ 09:16 by Gil Mendes MD) Blood in stool GAEL (obstructive sleep apnea) Hypertension Atrial flutter Peripheral neuropathy Sigmoidoscopy performed Radiation proctitis Family History Family History Father Family history of cardiovascular disease Sibling Diabetes mellitus Heart disease Mother Carcinoma of colon Grandparent Alcohol abuse Social History Social History Smoking status: Never smoker Tobacco type: cigars Alcohol intake: current Drinks per week: 3 Substance use: never Substance use type: does not use Do You Feel Safe in your Home?: Yes Lack of Transportation: No Lack of Food: Never True Current Housing: I Have Housing Concerned About Future Housing: No Difficulty Paying Gas/Electric Bills: Decline to Answer Difficulty Paying for Meds: Decline to Answer Currently Unemployed: Decline to Answer Education: Bachelor's Degree Difficulty w/ Childcare or Family Care: YES Living arrangements: with family Spiritual care concerns: No Meds Home Medications and Allergies Home Medications ?Medication ?Instructions ?Recorded ?Confirmed ?Type abiraterone 250 mg tablet 1,000 mg PO DAILY 07/16/23 10/20/24 History relugolix 120 mg tablet (Orgovyx) 120 mg PO DAILY 07/16/23 10/20/24 History aspirin 325 mg tablet 325 mg PO DAILY 07/22/23 10/20/24 History prednisone 5 mg tablet 5 mg PO DAILY 11/13/23 10/20/24 History losartan 25 mg tablet 25 mg PO DAILY #90 tabs 05/15/24 10/20/24 Rx metoprolol succinate 100 mg See Rx Instructions .Route 08/19/24 10/08/24 Rx tablet,extended release 24 hr .COMPLEX #90 tabs diltiazem HCl 240 mg capsule,24 See Rx Instructions .Route 09/28/24 10/20/24 Rx hr,extended release .COMPLEX #30 caps flecainide 100 mg tablet See Rx Instructions .Route 10/07/24 10/20/24 Rx .COMPLEX #60 tabs buspirone 5 mg tablet 5 mg PO BID #60 tabs 10/08/24 10/20/24 Rx Allergies Allergy/AdvReac Type Severity Reaction Status Date / Time Penicillins Allergy Unknown Verified 10/20/24 08:52 Vital Signs Vital Signs - 24 hr 10/20/24 08:55 10/20/24 09:08 10/20/24 09:13 Temperature 97 F L Pulse Rate 121 H 124 H 124 H Respiratory Rate 18 Blood Pressure 150/100 H Pulse Oximetry 98 Oxygen Delivery Room Air Exam Const: General: comfortable and no acute distress HENMT: Face/Nose/Sinus: Normal nares present Eyes: General: appearance normal, both eyes and all related structures Neck: Neck: no JVD Resp: Auscultation: clear to auscultation bilaterally Cardio: Rate: regular rate Rhythm: regular rhythm GI: Inspection: non-distended GI Palp: Yes Soft to palpation Skin: General skin exam: normal color Neuro: General: gait normal Speech: normal speech Extrem: General: normal to inspection Psych: Mental Status: mental status grossly normal Assessment and Plan Assessment and plan (1) Radiation proctitis: Code(s): K62.7 - Radiation proctitis Status: Acute Assessment and Plan: sigmoidoscopy with APC (2) Blood in stool: Code(s): K92.1 - Melena Status: Acute
[2024-10-20 09:27] VITALS: BP 127/94; PULSE 91; RESP 17; O2SAT 97
[2024-10-20 09:37] VITALS: BP 136/91; PULSE 81; RESP 20; O2SAT 98
[2024-10-20 09:47] VITALS: BP 149/91; PULSE 97; RESP 22; O2SAT 98
--- OUTSIDE RECORDS SUMMARY | 2024-10-27 02:10 | XMS_ITS | Clinical Summary ---
Author Organization [facility] [facility] Address [address] [place] [address] Care Team Providers Care Fly Winder Name Role Phone Unavailable Primary Care Provider Unavailabl e Allergies Active Allergy Reactions Criticality Noted Date Comments Penicillins Unknown 09/07/2022 Encounters Date Type Department Care Team Description 08/11/2024 External Device Data ST[facility] ABSTRACTION Provider, Abstract 07/28/2024 External Device Data [facility] ABSTRACTION Provider, Abstract from Last 3 Months Immunizations Name Administration Dates Next Due (COMIRNATY)(12 YR UP) COVID- 19 VACCINE, MRNA, SPIKE PROTEIN, LNP, MONIK(PF) 30 MCG/0.3 ML IM SUSP 08/12/2024,09/13/2023 INFLUENZA VACCINE HIGH DOSE QUADRIVALENT 65 YR UP PF IM 08/11/2023,09/07/2022 INFLUENZA VACCINE HIGH DOSE TRIVALENT SPLIT VIRUS, (65 YR UP), 0.5ML (PF), IM 08/12/2024 Social History Tobacco Use Types Packs/Day Years Used Date Smoking Tobacco: Never Assessed Sex and Gender Information Value Date Recorded Sex Assigned at Not on file Gender Identity Not on file Sexual Orientation Not on file Plan of Treatment Health Maintenance Due Date Last Done Comments DTAP/TDAP/TD VACCINES (1 - Tdap) 1968 COLORECTAL SCREENING 1994 Colorectal Cancer Screening 1994 FIT-DNA Q 3 years 1994 FIT/FOBT Q 1 year 1994 Flex Sig/CT Colonography Q 5 years 1994 ZOSTER VACCINE (1 of 2) 1999 PNEUMOCOCCAL VACCINE 65+ YEA RS (1 of 1 - PCV) 2014 RSV VACCINE (60+ or ) (1 - 1-dose 75+ series) 2024 COVID-19 Vaccine Completed 08/12/2024, 09/13/2023 INFLUENZA VACCINE Completed 08/12/2024, , 09/07/2022
--- OUTSIDE RECORDS SUMMARY | 2024-10-27 02:10 | XMS_ITS | Encounter Summary ---
Author Organization [facility] Address [address] [place] [address] Care Team Providers Care Golf Club Head Inspector And Adjuster Name Role Phone Unavailable Primary Care Provider Unavailabl e Encounter Details Date Type Department Care Team (Late st Contact Info) Description 08/11/2024 External Device Data [facility] Provider, Abstract NO ADDRESS ON FILE Social History Tobacco Use Types Packs/Day Years Used Date Smoking Tobacco: Never Assessed Sex and Gender Information Value Date Recorded Sex Assigned at Not on file Gender Identity Not on file Sexual Orientation Not on file documented as of this encounter Plan of Treatment Not on file documented as of this encounter Visit Diagnoses Not on filedocumented in this encounter
--- OUTSIDE RECORDS SUMMARY | 2024-10-27 02:11 | XMS_ITS | Encounter Summary ---
Author Organization [facility] Address [address] [place] [address] Care Team Providers Care Process Lead Name Role Phone Unavailable Primary Care Provider Unavailabl e Encounter Details Date Type Department Care Team (Late st Contact Info) Description 06/02/2024 External Device Data [facility] ABSTRACTION Provider, Abstract [...]
--- OUTSIDE RECORDS SUMMARY | 2024-10-27 02:11 | XMS_ITS | Encounter Summary ---
Author Organization [facility] Address [address] [place] [address] Care Team Providers Care Aviation Electronics Technician Name Role Phone Unavailable Primary Care Provider Unavailabl e Encounter Details Date Type Department Care Team (Late st Contact Info) Description 06/18/2024 External Device Data [facility] ABSTRACTION Provider, Abstract [...]
--- OUTSIDE RECORDS SUMMARY | 2024-10-27 02:11 | XMS_ITS | Encounter Summary ---
Author Organization [facility] Address [address] [place] [address] Care Team Providers Care Snow Technician Name Role Phone Unavailable Primary Care Provider Unavailabl e Encounter Details Date Type Department Care Team (Late st Contact Info) Description 12/31/2023 External Device Data ST[facility] ABSTRACTION Provider, Abstract [...]
--- OUTSIDE RECORDS SUMMARY | 2024-10-27 02:11 | XMS_ITS | Encounter Summary ---
Author Organization [facility] Address [address] [place] [address] Care Team Providers Care Corporate Executive Chef Name Role Phone Unavailable Primary Care Provider Unavailabl e Encounter Details Date Type Department Care Team (Late st Contact Info) Description 07/07/2024 External Device Data [facility] ABSTRACTION Provider, Abstract [...]
--- OUTSIDE RECORDS SUMMARY | 2024-10-27 02:11 | XMS_ITS | Encounter Summary ---
Author Organization [facility] Address [address] [place] [address] Care Team Providers Care Formulation Chemist Name Role Phone Unavailable Primary Care Provider Unavailabl e Encounter Details Date Type Department Care Team (Late st Contact Info) Description 01/17/2024 External Device Data [facility] ABSTRACTION Provider, Abstract [...]
--- OUTSIDE RECORDS SUMMARY | 2024-10-27 02:11 | XMS_ITS | Encounter Summary ---
Author Organization [facility] Address [address] [place] [address] Care Team Providers Care Licensed Mental Health Counselor Name Role Phone Unavailable Primary Care Provider Unavailabl e Encounter Details Date Type Department Care Team (Late st Contact Info) Description 10/09/2023 External Device Data ST[facility] ABSTRACTION Provider, Abstract [...]
--- OUTSIDE RECORDS SUMMARY | 2024-10-27 02:11 | XMS_ITS | Encounter Summary ---
Author Organization [facility] Address [address] [place] [address] Care Team Providers Care Medical And Scientific Illustrator Name Role Phone Unavailable Primary Care Provider Unavailabl e Encounter Details Date Type Department Care Team (Late st Contact Info) Description 03/17/2024 External Device Data [facility] ABSTRACTION Provider, Abstract [...]
--- OUTSIDE RECORDS SUMMARY | 2024-10-27 02:11 | XMS_ITS | Encounter Summary ---
Author Organization [facility] Address [address] [place] [address] Care Team Providers Care Director Of Security Name Role Phone Unavailable Primary Care Provider Unavailabl e Encounter Details Date Type Department Care Team (Late st Contact Info) Description 11/27/2023 External Device Data ST[facility] ABSTRACTION Provider, Abstract [...]
--- OUTSIDE RECORDS SUMMARY | 2024-10-27 02:11 | XMS_ITS | Encounter Summary ---
Author Organization [employer] Address [address] [place] [address] Care Team Providers Care Production Metal Sprayer Name Role Phone Unavailable Primary Care Provider Unavailabl e Encounter Details Date Type Department Care Team (Late st Contact Info) Description 07/28/2024 External Device Data ST[facility] ABSTRACTION Provider, [...]
--- OUTSIDE RECORDS SUMMARY | 2024-10-27 02:11 | XMS_ITS | Encounter Summary ---
Author Organization [facility] Address [address] [place] [address] Care Team Providers Care Aniline Press Worker Name Role Phone Unavailable Primary Care Provider Unavailabl e Encounter Details Date Type Department Care Team (Late st Contact Info) Description 01/10/2024 External Device Data STL ABSTRACTION Provider, Abstract [...]
--- OUTSIDE RECORDS SUMMARY | 2024-10-27 02:11 | XMS_ITS | Encounter Summary ---
Author Organization [facility] Address [address] [place] [address] Care Team Providers Care Sports Athletic Trainer Name Role Phone Unavailable Primary Care Provider Unavailabl e Encounter Details Date Type Department Care Team (Late st Contact Info) Description 05/05/2024 External Device Data STL ABSTRACTION Provider, Abstract [...]
--- OUTSIDE RECORDS SUMMARY | 2024-10-27 02:11 | XMS_ITS | Encounter Summary ---
Author Organization [facility] Address [address] [place] [address] Care Team Providers Care Optimization Manager Name Role Phone Unavailable Primary Care Provider Unavailabl e Encounter Details Date Type Department Care Team (Late st Contact Info) Description 04/28/2024 External Device Data STL ABSTRACTION Provider, Abstract [...]
--- OUTSIDE RECORDS SUMMARY | 2024-10-27 02:11 | XMS_ITS | Encounter Summary ---
Author Organization [facility] Address [address] [place] [address] Care Team Providers Care Precision Devices Inspector/Tester Name Role Phone Unavailable Primary Care Provider Unavailabl e Encounter Details Date Type Department Care Team (Late st Contact Info) Description 11/24/2023 External Device Data STL ABSTRACTION Provider, Abstract [...]
--- OUTSIDE RECORDS SUMMARY | 2024-10-27 02:11 | XMS_ITS | Encounter Summary ---
Author Organization [facility] Address [address] [place] [address] Care Team Providers Care Class C Driver Name Role Phone Unavailable Primary Care Provider [...]
--- OUTSIDE RECORDS SUMMARY | 2024-10-27 02:11 | XMS_ITS | Encounter Summary ---
Author Organization [facility] Address [address] [place] [address] Care Team Providers Care Rubber Goods Inspector Tester Name Role Phone Unavailable Primary Care Provider Unavailabl e Encounter Details Date Type Department Care Team (Late st Contact Info) Description 01/28/2024 External Device Data STL ABSTRACTION Provider, Abstract [...]
--- OUTSIDE RECORDS SUMMARY | 2024-10-27 02:11 | XMS_ITS | Encounter Summary ---
Author Organization [facility] Address [address] [place] [address] Care Team Providers Care Baby Registry Sales Consultant Name Role Phone Unavailable Primary Care Provider Unavailabl e Encounter Details Date Type Department Care Team (Late st Contact Info) Description 02/11/2024 External Device Data STL ABSTRACTION Provider, Abstract [...]
--- OUTSIDE RECORDS SUMMARY | 2024-10-27 02:11 | XMS_ITS | Encounter Summary ---
Author Organization [facility] Address [address] [place] [address] Care Team Providers Care Counterintelligence Analyst Name Role Phone Unavailable Primary Care Provider [...]
--- OUTSIDE RECORDS SUMMARY | 2024-10-27 02:11 | XMS_ITS | Encounter Summary ---
Author Organization [facility] Address [address] [place] [address] Care Team Providers Care Accounts Payable Supervisor Name Role Phone Unavailable Primary Care Provider [...]
== END 2024-10-20 09:57 | disposition home or self-care (01) ==
PROVIDERS: PCP Family Medicine; Visit Provider Internal Medicine Gastroenterology
PROC: 0DJD8ZZ Inspection of Lower Intestinal Tract, Via Natural or Artificial Opening Endoscopic (ICD-10-PCS; CPT 45330; principal; 2024-10-20 10:00)
DX: K55.20 Angiodysplasia of colon without hemorrhage (principal); K62.7 Radiation proctitis; I10 Essential (primary) hypertension; G47.33 Obstructive sleep apnea (adult) (pediatric); I48.92 Unspecified atrial flutter; G62.9 Polyneuropathy, unspecified; F17.290 Nicotine dependence, other tobacco product, uncomplicated; Z79.82 Long term (current) use of aspirin; Z79.52 Long term (current) use of systemic steroids; Z80.0 Family history of malignant neoplasm of digestive organs; Z82.49 Family history of ischemic heart disease and other diseases of the circulatory system
CPT/HCPCS: 45334; J2704; J7120

== ENCOUNTER 2025-07-26 09:21 | Outpatient (CLI) | payer MEDICARE, SELFPAY ==
--- NOTE | ~2025-07-26 | XR_ITS ---
XR lumbar spine 6V w bending Indication: Low back pain, unspecified, x 6 weeks, no inj, no surg Comparison: None Findings: Moderate loss of vertebral height throughout, no fracture or subluxation. Moderate to severe loss of disc height throughout most marked at L4-5 and L5-S1, there is no subluxation with flexion and extension Soft tissues unremarkable Impression: No acute abnormality. Reviewed, dictated and finalized at location P. Impression: No acute abnormality.
== END 2025-07-26 09:22 | disposition home or self-care (01) ==
LOC: GOSHIMG 09:21
PROVIDERS: PCP Family Medicine; Visit Provider Nurse Practitioner Family
DX: M54.50 Low back pain, unspecified (principal)
CPT/HCPCS: 72114